=== PATIENT | female | born 1940 ===

== ENCOUNTER 2018-08-28 22:00 | Inpatient (IN) | payer MEDICARE ==
[~2018-08-28] VITALS: Ht 162.6 cm; Wt 72.2 kg
--- NOTE | 2018-08-28 23:05 | PDOC ---
Exam Note: Asif Note: Please also refer to the separate dictated note~for this date of service dictated separately.~Patient seen individually. Discussed the patient with Nursing staff reviewed the chart.~Reviewed interim history and current functioning. Reviewed vital signs,~Labs/ Radiology~and current medications noted below. Continue current treatment with the changes noted in the dictated addendum note Current Medications: I have reviewed the current psychotropics carefully including drug interactions. Risk benefit ratio favors no change other than as noted in my dictated progress note. GIRMA GRAF MD Aug 28, 2018 23:05
[2018-08-29] MEDS ORDERED: ASPI-630 PO (01:01)
[2018-08-29] MEDS ORDERED: ATOR10TA60 PO (01:01)
[2018-08-29] MEDS ORDERED: POLY17PO5 PO (01:01)
[2018-08-29] MEDS ORDERED: ACET325T9 PO (01:01)
[2018-08-29] MEDS ORDERED: TRAZ-85 PO (01:01)
[2018-08-29] MEDS ORDERED: MELO7.5T29 PO (01:01)
[2018-08-29] MEDS ORDERED: INSU100I13 SQ (01:01)
[2018-08-29] MEDS ORDERED: FURO20TA3 PO (01:01)
[2018-08-29] MEDS ORDERED: VENL150T PO (01:01)
[2018-08-29] MEDS ORDERED: INSU100I17 SQ (01:01)
[2018-08-29 01:29] VITALS: BP 147/82
[2018-08-29] MEDS ORDERED: MAGNESIUM HYDROXIDE 2,400 MG/30 ML ORAL.SUSP. PO PRN (01:45)
[2018-08-29] MEDS ORDERED: ACETAMINOPHEN 325 MG TABLET PO PRN (01:45)
[2018-08-29] MEDS ORDERED: METHYL SALICYLATE/MENTHOL TOPICAL OINTMENT 29GM TUBE. TP PRN (01:45)
[2018-08-29] MEDS ORDERED: MAG HYDROX/AL HYDROX/SIMETH 30 ML ORAL.SUSP PO PRN (01:45)
[2018-08-29] MEDS ORDERED: traZODone 50 MG TABLET. PO PRN (03:00)
[2018-08-29] MEDS: ACETAMINOPHEN 325 MG TABLET PO PRN (03:45)
--- NOTE | 2018-08-29 04:49 | EKG ---
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
[2018-08-29 06:12] VITALS: BP 140/74
[2018-08-29 06:25] LABS: BASO % 1 % (0-3); EOS # 0.1 x10^3/uL (0.0-0.7); EOS % 2 % (0-3); HEMATOCRIT 41.1 % (36.0-47.0); HEMOGLOBIN 13.6 g/dL (12.0-15.5); LYMPH # 1.4 x10^3/uL (1.0-4.8); LYMPH % 35 % (24-48); MEAN CORPUSCULAR HEMOGLOBIN 29 pg (25-35); MEAN CORPUSCULAR HGB CONC 33 g/dL (31-37); MEAN CORPUSCULAR VOLUME 89 fL (79-100); MONO # 0.3 x10^3/uL (0.0-1.1); MONO % 7 % (0-9); NEUT # 2.2 x10^3uL (1.8-7.7); NEUT % 56 % (31-73); PLATELET COUNT 154 x10^3/uL (140-400); RED BLOOD COUNT 4.63 x10^6/uL (3.50-5.40); RED CELL DISTRIBUTION WIDTH 14.3 % (11.5-14.5)
[2018-08-29 06:36] LABS: ALBUMIN 3.2 g/dL (3.4-5.0); ALBUMIN/GLOBULIN RATIO 0.9 (1.0-1.7); CALCIUM 8.9 mg/dL (8.5-10.1); CREATININE 1.2 mg/dL (0.6-1.0); GFR 43.3; POTASSIUM 4.1 mmol/L (3.5-5.1); TOTAL BILIRUBIN 0.8 mg/dL (0.2-1.0); TOTAL PROTEIN 6.7 g/dL (6.4-8.2)
[2018-08-29] MEDS: ASPIRIN 81 MG TAB.CHEW PO SCH (08:11)
[2018-08-29] MEDS: POLYETHYLENE GLYCOL 3350 17 GM PACKET. PO SCH (08:11)
[2018-08-29] MEDS: FUROSEMIDE 20 MG TABLET PO SCH (08:11)
[2018-08-29] MEDS: MELOXICAM 7.5 MG TABLET PO SCH (08:11)
[2018-08-29] MEDS: INSULIN LISPRO 300 UNITS/3 ML INSULN.PEN. SQ SCH ×3 (08:12→17:31)
[2018-08-29] MEDS: INSULIN GLARGINE 300 UNITS/3 ML INSULN.PEN. SQ SCH (08:14)
[2018-08-29] MEDS ORDERED: NON FORMULARY ITEM (Venlafaxine Hcl (Venlafaxine Hcl Er) 150 MG) PO SCH (09:00)
[2018-08-29] MEDS ORDERED: ATORVASTATIN CALCIUM 10 MG PO SCH (09:00)
[2018-08-29] MEDS ORDERED: NON FORMULARY ITEM (Polyethylene Glycol 3350 (Miralax) 17 GM) PO SCH (09:00)
[2018-08-29] MEDS ORDERED: NON FORMULARY ITEM (Meloxicam 7.5 MG) PO SCH (09:00)
[2018-08-29] MEDS ORDERED: VENLAFAXINE XR 37.5 MG CAP.ER.24H. PO SCH (09:00)
[2018-08-29] MEDS ORDERED: NON FORMULARY ITEM (Aspirin 81 MG) PO SCH (09:00)
[2018-08-29 12:45] LABS: THYROID STIM HORMONE (TSH) 2.243 uIU/mL (0.358-3.740)
[2018-08-29 16:10] VITALS: BP 169/82
[2018-08-29 19:12] LABS: THYROXINE 6.2 ug/dL (4.5-12.0)
--- NOTE | 2018-08-29 19:41 | HP ---
ADMIT DATE: 08/28/2018 PSYCHIATRIC HISTORY AND EVALUATION This note covers elements not covered in my initial note, 08/29/2018. IDENTIFYING DATA: The patient is a 77-year-old female referred to us from the Emergency Room at [facility] where she presented from her independent living at [facility] where she cares for her due to his progressive dementia. The patient has been getting increasingly depressed, hopeless, worthless, overwhelmed while taking care of her . She threatened suicide. Said she was praying to be and at one point had threatened to jump off the third story of the apartment complex to end her life. She was tearful, hopeless. She had failed outpatient psychiatric interventions, referred for inpatient psychiatric stabilization. CHIEF COMPLAINT: "I would not try to end my life, but it has been getting very frustrating. He is getting more confused. I cannot take care of him." HISTORY OF PRESENT ILLNESS: The patient relates worsening symptoms of depression, feeling hopeless, helpless, worthless, increasingly anxious and overwhelmed taking care of her . She has had some sleep and appetite changes. No clear psychotic symptoms or homicidal ideation. No clear symptoms of bipolar disorder. She has had some short term memory deficits. PAST PSYCHIATRIC HISTORY: As above. MEDICAL HISTORY: Positive for gait disorder, allergic rhinitis, abdominal aortic pulsation, asthma, bradycardia, pacemaker in place, celiac disease, lumbar compression fracture, diabetic foot ulcer, diverticulosis, dysuria, edema, gastroparesis, osteoarthritis, GERD, irritable bowel syndrome, low back pain, hyperlipidemia, obesity, obstructive sleep apnea, atrial fibrillation, sarcoidosis, chronic kidney disease, stage 3, thyroid nodule incontinence, vitamin D deficiency, cataracts. PAST SURGICAL HISTORY: Appendectomy, cholecystectomy and tonsillectomy. ALLERGIES: CIPRO, MEPERIDINE, AUGMENTIN, CODEINE, DEMEROL, ERYTHROMYCIN, MORPHINE, NARCOTIC ANALGESIC, SULFA DRUGS, TRAMADOL. CODE STATUS: DNR. FAMILY HISTORY: Noncontributory. SOCIAL HISTORY: No alcohol, drug abuse, physical, sexual or elder abuse history is noted. Patient is not known to be a perpetrator. She states she worked for an [employer] company mostly with [email or web address]. She has been twice. Reportedly, her first cheated on her and her children are from her first relationship. She has been currently for the past 34 years approximately. She brought up her family in [facility] and moved to the [facility] to be closer to her sons and her 's vascular surgeon. REACTION TO HOSPITALIZATION: The patient accepting of it. Assets: Patient has supportive family. Three of her sons, 2 are in town, one is out of state and she is cognitively reasonably intact. MENTAL STATUS EXAMINATION: The patient was seen individually evening of 08/29/2018. She is oriented to herself, situation, knew it was 08/29/2018. She is aware of who the president was, President Shirlene. Mood is depressed, anxious. Affect is mood congruent. She was able to do 2 steps on serial sevens, able to spell world forward no error backward, 2 errors. Again, no active suicidal or homicidal ideation. LABORATORY DATA: Reviewed. IMPRESSION: Major depressive disorder, recurrent with history of suicidal ideation; anxiety disorder, unspecified; impulse control disorder, unspecified; mild cognitive impairment. Rest as above. PLAN: Admit to Geropsychiatry Unit at [facility]. I will see the patient daily individually from a psychiatric standpoint. The patient is currently on Effexor XR 150 mg a day, trazodone 50 mg at bedtime. Given her chronic pain symptoms, we will go ahead and change the Effexor to Cymbalta 30 mg a day, increasing gradually, perhaps to 90 mg a day. May need augmentation with Abilify, but we will decide that in due course. Medical followup with Dr. Govea/Dr. Henderson and I will see her daily individually from a psychiatric standpoint. Estimated length of stay 10-12 days. DISPOSITION: Plans return back to independent living or perhaps assisted living if it can be arranged. MAN Patrice GRAF MD DR: ROLAN/angle JOB#: [id number] / [id number]
[2018-08-29 20:07] LABS: HEMOGLOBIN A1C 6.6 % (4.8-5.6)
[2018-08-29] MEDS: ATORVASTATIN CALCIUM 10 MG TABLET. PO SCH (20:07)
[2018-08-29] MEDS: traZODone 50 MG TABLET. PO SCH (20:07)
[2018-08-29] MEDS ORDERED: NON FORMULARY ITEM (Trazodone Hcl 25 MG) PO SCH (21:00)
[2018-08-30 05:48] VITALS: BP 141/83
[2018-08-30] MEDS: DULoxetine HCL 30 MG CAPSULE.DR PO SCH (08:24)
[2018-08-30] MEDS: MELOXICAM 7.5 MG TABLET PO SCH (08:25)
[2018-08-30] MEDS: FUROSEMIDE 20 MG TABLET PO SCH (08:25)
[2018-08-30] MEDS: POLYETHYLENE GLYCOL 3350 17 GM PACKET. PO SCH (08:25)
[2018-08-30] MEDS: ASPIRIN 81 MG TAB.CHEW PO SCH (08:27)
[2018-08-30] MEDS: INSULIN GLARGINE 300 UNITS/3 ML INSULN.PEN. SQ SCH (08:31)
[2018-08-30] MEDS: INSULIN LISPRO 300 UNITS/3 ML INSULN.PEN. SQ SCH ×3 (08:34→16:30)
[2018-08-30 16:34] VITALS: BP 133/77
[2018-08-30] MEDS: ATORVASTATIN CALCIUM 10 MG TABLET. PO SCH (21:26)
[2018-08-30] MEDS: traZODone 50 MG TABLET. PO SCH (21:27)
--- NOTE | 2018-08-30 22:39 | PDOC ---
Exam Note: Asif Note: Late entry for DOS 08/29/2018. Please also refer to the separate dictated note~ for this date of service dictated separately.~Patient seen individually. Discussed the patient with Nursing staff reviewed the chart.~Reviewed interim history and current functioning. Reviewed vital signs,~Labs/ Radiology~and current medications noted below. Continue current treatment with the changes noted in the dictated addendum note Assessment: Vital Signs: VS - Last 72 Hours, by Label Date Time Temp Pulse Resp B/P (MAP) Pulse Ox O2 Delivery O2 Flow Rate FiO2 08/30/18 16:34 98.2 81 18 133/77 (95) 99 08/30/18 05:48 98.0 81 20 141/83 (102) 96 08/29/18 16:10 97.8 83 20 169/82 (111) 97 Room Air 08/29/18 06:12 98.3 79 18 140/74 (96) 97 Room Air 08/29/18 01:29 97.9 81 18 147/82 (103) 98 Vital Signs Date Time Temp Pulse Resp B/P (MAP) Pulse Ox O2 Delivery O2 Flow Rate FiO2 08/30/18 16:34 98.2 81 18 133/77 (95) 99 08/29/18 16:10 Room Air I&O Intake and Output 08/30/18 07:00 Intake Total 1080 ml Balance 1080 ml Intake Oral 1080 ml Labs: Laboratory Tests Test 08/30/18 08:03 08/30/18 11:56 08/30/18 17:02 08/30/18 19:31 Glucose (Fingerstick) 139 mg/dL (70-99) H 113 mg/dL (70-99) H 123 mg/dL (70-99) H 175 mg/dL (70-99) H Current Medications: Meds: Current Medications Acetaminophen (Tylenol) 650 mg PRN Q6HRS PRN PO PAIN / TEMP Last administered on 08/29/18at 03:45; Start 08/29/18 at 01:45 Multi-Ingredient Ointment (Analgesic [place]) 1 calli PRN QID PRN TP MUSCLE PAIN; Start 08/29/18 at 01:45 Al Hydroxide/Mg Hydroxide (Mylanta Plus Xs) 15 ml PRN AFTMEALHC PRN PO DYSPEPSIA; Start 08/29/18 at 01:45 Magnesium Hydroxide (Milk Of Magnesia) 2,400 mg PRN QHS PRN PO CONSTIPATION; Start 08/29/18 at 01:45 Acetaminophen (Tylenol) 650 mg PRN Q4HRS PRN PO PAIN / TEMP; Start 08/29/18 at 01:45; Status Cancel Furosemide (Lasix) 20 mg DAILY PO Last administered on 08/30/18at 08:25; Start 08/29/18 at 09:00 Insulin Glargine (Lantus) 35 units DAILY SQ Last administered on 08/29/18at 08: 14; Start 08/29/18 at 09:00 Non-Formulary Medication (Aspirin ) 81 mg DAILY PO ; Start 08/29/18 at 09:00; Status UNV Non-Formulary Medication (Atorvastatin Calcium ) 10 mg DAILY PO ; Start at 09:00; Status UNV Insulin Human Lispro (HumaLOG) 8 units TIDAC SQ Last administered on 08/30/18at 08:34; Start 08/29/18 at 07:30 Non-Formulary Medication (Meloxicam ) 7.5 mg DAILY PO ; Start 08/29/18 at 09:00 ; Status UNV Non-Formulary Medication (Polyethylene Glycol 3350 (Miralax)) 17 gm DAILY PO ; Start 08/29/18 at 09:00; Status UNV Non-Formulary Medication (Trazodone Hcl ) 25 mg QHS PO ; Start 08/29/18 at 21:00 ; Status UNV Non-Formulary Medication (Venlafaxine Hcl (Venlafaxine Hcl Er)) 150 mg DAILY PO ; Start 08/29/18 at 09:00; Status UNV Meloxicam (Mobic) 7.5 mg DAILY PO Last administered on 08/30/18at 08:25; Start 08/29/18 at 09:00 Trazodone HCl (Desyrel) 25 mg PRN QHS PRN PO INSOMNIA; Start 08/29/18 at 03:00 Venlafaxine HCl (Effexor Xr) 150 mg DAILY PO Last administered on 08/29/18at 08: 11; Start 08/29/18 at 09:00; Stop 08/29/18 at 18:50; Status DC Atorvastatin Calcium (Lipitor) 10 mg HS PO Last administered on 11/7/18at 21:26 ; Start 08/29/18 at 21:00 Aspirin (Children'S Aspirin) 81 mg DAILYWBKFT PO Last administered on at 08:27; Start 08/29/18 at 08:00 Polyethylene Glycol (miraLAX) 17 gm DAILY PO Last administered on 08/30/18 08: 25; Start 08/29/18 at 09:00 Trazodone HCl (Desyrel) 50 mg QHS PO Last administered on 08/30/18 21:27; Start 08/29/18 at 21:00 Duloxetine HCl (Cymbalta) 30 mg DAILY PO Last administered on 08/30/18 08:24; Start 08/30/18 at 09:00; Stop 09/01/18 at 05:00 Duloxetine HCl (Cymbalta) 60 mg DAILY PO ; Start 09/01/18 at 09:00 Active Scripts Active Reported Furosemide 20 Mg Tablet 20 Mg PO DAILY Tylenol (Acetaminophen) 325 Mg Tablet 650 Mg PO PRN Q4HRS Miralax (Polyethylene Glycol 3350) 17 Gm Powd.pack 17 Gm PO DAILY Aspirin 81 Mg Tab.chew 81 Mg PO DAILY Atorvastatin Calcium 10 Mg Tablet 10 Mg PO DAILY Novolog Flexpen (Insulin Aspart) 100 Unit/1 Ml Insuln.pen 8 Units SQ TIDAC Venlafaxine Hcl Er (Venlafaxine Hcl) 150 Mg Tab.er.24 150 Mg PO DAILY Trazodone Hcl 50 Mg Tablet 25 Mg PO QHS Meloxicam 7.5 Mg Tablet 7.5 Mg PO DAILY Lantus Solostar (Insulin Glargine,Hum.rec.anlog) 100 Unit/1 Ml Insuln.pen 35 Unit SQ DAILY I have reviewed the current psychotropics carefully including drug interactions. Risk benefit ratio favors no change other than as noted in my dictated progress note. Diagnosis: Problems: (1) Anxiety disorder (2) Major depressive disorder, recurrent episode GIRMA GRAF MD Aug 30, 2018 22:39
--- NOTE | 2018-08-30 23:12 | PDOC ---
Exam Note: Asif Note: Please also refer to the separate dictated note~for this date of service dictated separately.~Patient seen individually. Discussed the patient with Nursing staff reviewed the chart.~Reviewed interim history and current functioning. Reviewed vital signs,~Labs/ Radiology~and current medications noted below. Continue current treatment with the changes noted in the dictated addendum note Assessment: Vital Signs: Vital Signs Date Time Temp Pulse Resp B/P (MAP) Pulse Ox O2 Delivery O2 Flow Rate FiO2 08/30/18 16:34 98.2 81 18 133/77 (95) 99 08/29/18 16:10 Room Air I&O Intake and Output 08/30/18 07:00 Intake Total 1080 ml Balance 1080 ml Intake Oral 1080 ml Labs: Laboratory Tests Test 08/30/18 08:03 08/30/18 11:56 08/30/18 17:02 08/30/18 19:31 Glucose (Fingerstick) 139 mg/dL (70-99) H 113 mg/dL (70-99) H 123 mg/dL (70-99) H 175 mg/dL (70-99) H Current Medications: Meds: Current Medications Acetaminophen (Tylenol) 650 mg PRN Q6HRS PRN PO PAIN / TEMP Last administered on 08/29/18at 03:45; Start 08/29/18 at 01:45 Multi-Ingredient Ointment (Analgesic [place]) 1 calli PRN QID PRN TP MUSCLE PAIN; Start 08/29/18 at 01:45 Al Hydroxide/Mg Hydroxide (Mylanta Plus Xs) 15 ml PRN AFTMEALHC PRN PO DYSPEPSIA; Start 08/29/18 at 01:45 Magnesium Hydroxide (Milk Of Magnesia) 2,400 mg PRN QHS PRN PO CONSTIPATION; Start 08/29/18 at 01:45 Acetaminophen (Tylenol) 650 mg PRN Q4HRS PRN PO PAIN / TEMP; Start 08/29/18 at 01:45; Status Cancel Furosemide (Lasix) 20 mg DAILY PO Last administered on 08/30/18at 08:25; Start 08/29/18 at 09:00 Insulin Glargine (Lantus) 35 units DAILY SQ Last administered on 08/29/18at 08: 14; Start 08/29/18 at 09:00 Non-Formulary Medication (Aspirin ) 81 mg DAILY PO ; Start 08/29/18 at 09:00; Status UNV Non-Formulary Medication (Atorvastatin Calcium ) 10 mg DAILY PO ; Start at 09:00; Status UNV Insulin Human Lispro (HumaLOG) 8 units TIDAC SQ Last administered on 08/30/18at 08:34; Start 08/29/18 at 07:30 Non-Formulary Medication (Meloxicam ) 7.5 mg DAILY PO ; Start 08/29/18 at 09:00 ; Status UNV Non-Formulary Medication (Polyethylene Glycol 3350 (Miralax)) 17 gm DAILY PO ; Start 08/29/18 at 09:00; Status UNV Non-Formulary Medication (Trazodone Hcl ) 25 mg QHS PO ; Start 08/29/18 at 21:00 ; Status UNV Non-Formulary Medication (Venlafaxine Hcl (Venlafaxine Hcl Er)) 150 mg DAILY PO ; Start 08/29/18 at 09:00; Status UNV Meloxicam (Mobic) 7.5 mg DAILY PO Last administered on 08/30/18at 08:25; Start 08/29/18 at 09:00 Trazodone HCl (Desyrel) 25 mg PRN QHS PRN PO INSOMNIA; Start 08/29/18 at 03:00 Venlafaxine HCl (Effexor Xr) 150 mg DAILY PO Last administered on 08/29/18at 08: 11; Start 08/29/18 at 09:00; Stop 08/29/18 at 18:50; Status DC Atorvastatin Calcium (Lipitor) 10 mg HS PO Last administered on 08/30/18at 21:26 ; Start 08/29/18 at 21:00 Aspirin (Children'S Aspirin) 81 mg DAILYWBKFT PO Last administered on at 08:27; Start 08/29/18 at 08:00 Polyethylene Glycol (miraLAX) 17 gm DAILY PO Last administered on 08/30/18at 08: 25; Start 08/29/18 at 09:00 Trazodone HCl (Desyrel) 50 mg QHS PO Last administered on 08/30/18at 21:27; Start 08/29/18 at 21:00 Duloxetine HCl (Cymbalta) 30 mg DAILY PO Last administered on 11/7/18at 08:24; Start 08/30/18 at 09:00; Stop 09/01/18 at 05:00 Duloxetine HCl (Cymbalta) 60 mg DAILY PO ; Start 09/01/18 at 09:00 Active Scripts Active Reported Furosemide 20 Mg Tablet 20 Mg PO DAILY Tylenol (Acetaminophen) 325 Mg Tablet 650 Mg PO PRN Q4HRS Miralax (Polyethylene Glycol 3350) 17 Gm Powd.pack 17 Gm PO DAILY Aspirin 81 Mg Tab.chew 81 Mg PO DAILY Atorvastatin Calcium 10 Mg Tablet 10 Mg PO DAILY Novolog Flexpen (Insulin Aspart) 100 Unit/1 Ml Insuln.pen 8 Units SQ TIDAC Venlafaxine Hcl Er (Venlafaxine Hcl) 150 Mg Tab.er.24 150 Mg PO DAILY Trazodone Hcl 50 Mg Tablet 25 Mg PO QHS Meloxicam 7.5 Mg Tablet 7.5 Mg PO DAILY Lantus Solostar (Insulin Glargine,Hum.rec.anlog) 100 Unit/1 Ml Insuln.pen 35 Unit SQ DAILY I have reviewed the current psychotropics carefully including drug interactions. Risk benefit ratio favors no change other than as noted in my dictated progress note. Diagnosis: Problems: (1) Anxiety disorder (2) Major depressive disorder, recurrent episode GIRMA GRAF MD Aug 30, 2018 23:12
[2018-08-31 05:52] VITALS: BP 138/76
[2018-08-31] MEDS: INSULIN LISPRO 300 UNITS/3 ML INSULN.PEN. SQ SCH ×3 (08:10→17:17)
[2018-08-31] MEDS: INSULIN GLARGINE 300 UNITS/3 ML INSULN.PEN. SQ SCH ×2 (08:11→08:13)
[2018-08-31] MEDS: ASPIRIN 81 MG TAB.CHEW PO SCH (08:12)
[2018-08-31] MEDS: FUROSEMIDE 20 MG TABLET PO SCH (08:13)
[2018-08-31] MEDS: POLYETHYLENE GLYCOL 3350 17 GM PACKET. PO SCH (08:13)
[2018-08-31] MEDS: MELOXICAM 7.5 MG TABLET PO SCH (08:13)
[2018-08-31] MEDS: DULoxetine HCL 30 MG CAPSULE.DR PO SCH (08:13)
[2018-08-31 15:56] VITALS: BP 127/76
[2018-08-31] MEDS: traZODone 50 MG TABLET. PO SCH (20:55)
[2018-08-31] MEDS: ATORVASTATIN CALCIUM 10 MG TABLET. PO SCH (20:55)
[2018-09-01 06:14] VITALS: BP 155/79
[2018-09-01] MEDS: ASPIRIN 81 MG TAB.CHEW PO SCH (08:11)
[2018-09-01] MEDS: DULoxetine HCL 60 MG CAPSULE.DR PO SCH (08:12)
[2018-09-01] MEDS: POLYETHYLENE GLYCOL 3350 17 GM PACKET. PO SCH (08:13)
[2018-09-01] MEDS: FUROSEMIDE 20 MG TABLET PO SCH (08:13)
[2018-09-01] MEDS: MELOXICAM 7.5 MG TABLET PO SCH (08:13)
[2018-09-01] MEDS: INSULIN LISPRO 300 UNITS/3 ML INSULN.PEN. SQ SCH ×3 (08:26→17:19)
[2018-09-01] MEDS: INSULIN GLARGINE 300 UNITS/3 ML INSULN.PEN. SQ SCH (08:26)
[2018-09-01 15:58] VITALS: BP 101/60
--- NOTE | 2018-09-01 19:03 | PN ---
DATE: 08/30/2018 PSYCHIATRIC PROGRESS NOTE This late entry 08/30/2018 covers elements not covered in my initial note. SUBJECTIVE: I met with the patient in the evening. The patient slept 7 hours previous night. She remains somewhat depressed, withdrawn, but no overt behaviors noted and not voicing suicidal ideation. I met with her at great length in her room. She talked about her relationship with her current of 34 years and said that he wanted a younger woman to help take care of him and she feels this was a one-sided relationship. She now seems to resent that. We addressed at great length. REVIEW OF SYSTEMS: No CV, , pulmonary, eye, ENT system symptoms on review. Gait unsteady with walker. MENTAL STATUS EXAM: Reasonably oriented. Speech coherent, abstraction fair, computation impaired, language function intact, attention span short. Mood and affect still somewhat dysphoric. No active suicidal or homicidal ideation. LABORATORY DATA: Reviewed. IMPRESSION: Major depressive disorder, recurrent; anxiety disorder, unspecified; mild cognitive impairment. PLAN: Continue Cymbalta 30 mg a day. We will gradually increase to 60 mg a day. Rest unchanged for now. MAN Patrice GRAF MD DR: ROLAN/angle JOB#: [id number] / [id number]
[2018-09-01] MEDS: traZODone 50 MG TABLET. PO SCH (19:28)
[2018-09-01] MEDS: ATORVASTATIN CALCIUM 10 MG TABLET. PO SCH (19:28)
--- NOTE | 2018-09-01 19:41 | PDOC ---
Exam Note: Asif Note: Late entry for date of service August 31, 2018. Please also refer to the separate dictated note~for this date of service dictated separately.~Patient seen individually. Discussed the patient with Nursing staff reviewed the chart.~ Reviewed interim history and current functioning. Reviewed vital signs,~Labs/ Radiology~and current medications noted below. Continue current treatment with the changes noted in the dictated addendum note Assessment: Vital Signs: VS - Last 72 Hours, by Label Date Time Temp Pulse Resp B/P (MAP) Pulse Ox O2 Delivery O2 Flow Rate FiO2 09/01/18 15:58 98.5 79 18 101/60 (74) 95 Room Air 09/01/18 06:14 97.9 80 18 155/79 (104) 100 Room Air 08/31/18 15:56 97.8 76 17 127/76 (93) 100 Room Air 08/31/18 05:52 97.0 80 21 138/76 (96) 94 08/30/18 16:34 98.2 81 18 133/77 (95) 99 08/30/18 05:48 98.0 81 20 141/83 (102) 96 Vital Signs Date Time Temp Pulse Resp B/P (MAP) Pulse Ox O2 Delivery O2 Flow Rate FiO2 09/01/18 15:58 98.5 79 18 101/60 (74) 95 Room Air I&O Intake and Output 09/01/18 07:00 Intake Total 840 ml Balance 840 ml Intake Oral 840 ml Labs: Laboratory Tests Test 09/01/18 07:15 09/01/18 11:48 09/01/18 16:21 Glucose (Fingerstick) 148 mg/dL (70-99) H 161 mg/dL (70-99) H 233 mg/dL (70-99) H Current Medications: Meds: Current Medications Acetaminophen (Tylenol) 650 mg PRN Q6HRS PRN PO PAIN / TEMP Last administered on 08/29/18at 03:45; Start 08/29/18 at 01:45 Multi-Ingredient Ointment (Analgesic [place]) 1 calli PRN QID PRN TP MUSCLE PAIN; Start 08/29/18 at 01:45 Al Hydroxide/Mg Hydroxide (Mylanta Plus Xs) 15 ml PRN AFTMEALHC PRN PO DYSPEPSIA; Start 08/29/18 at 01:45 Magnesium Hydroxide (Milk Of Magnesia) 2,400 mg PRN QHS PRN PO CONSTIPATION; Start 08/29/18 at 01:45 Acetaminophen (Tylenol) 650 mg PRN Q4HRS PRN PO PAIN / TEMP; Start 08/29/18 at 01:45; Status Cancel Furosemide (Lasix) 20 mg DAILY PO Last administered on 09/01/18at 08:13; Start 08/29/18 at 09:00 Insulin Glargine (Lantus) 35 units DAILY SQ Last administered on 08/31/18at 08: 13; Start 08/29/18 at 09:00 Non-Formulary Medication (Aspirin ) 81 mg DAILY PO ; Start 08/29/18 at 09:00; Status UNV Non-Formulary Medication (Atorvastatin Calcium ) 10 mg DAILY PO ; Start at 09:00; Status UNV Insulin Human Lispro (HumaLOG) 8 units TIDAC SQ Last administered on 09/01/18at 17:19; Start 08/29/18 at 07:30 Non-Formulary Medication (Meloxicam ) 7.5 mg DAILY PO ; Start 08/29/18 at 09:00 ; Status UNV Non-Formulary Medication (Polyethylene Glycol 3350 (Miralax)) 17 gm DAILY PO ; Start 08/29/18 at 09:00; Status UNV Non-Formulary Medication (Trazodone Hcl ) 25 mg QHS PO ; Start 08/29/18 at 21:00 ; Status UNV Non-Formulary Medication (Venlafaxine Hcl (Venlafaxine Hcl Er)) 150 mg DAILY PO ; Start 08/29/18 at 09:00; Status UNV Meloxicam (Mobic) 7.5 mg DAILY PO Last administered on 09/01/18at 08:13; Start 08/29/18 at 09:00 Trazodone HCl (Desyrel) 25 mg PRN QHS PRN PO INSOMNIA; Start 08/29/18 at 03:00 Venlafaxine HCl (Effexor Xr) 150 mg DAILY PO Last administered on 08/29/18at 08: 11; Start 08/29/18 at 09:00; Stop 08/29/18 at 18:50; Status DC Atorvastatin Calcium (Lipitor) 10 mg HS PO Last administered on 11/9/18at 19:28 ; Start 08/29/18 at 21:00 Aspirin (Children'S Aspirin) 81 mg DAILYWBKFT PO Last administered on 08:11; Start 08/29/18 at 08:00 Polyethylene Glycol (miraLAX) 17 gm DAILY PO Last administered on 09/01/18 08: 13; Start 08/29/18 at 09:00 Trazodone HCl (Desyrel) 50 mg QHS PO Last administered on 09/01/18 19:28; Start 08/29/18 at 21:00 Duloxetine HCl (Cymbalta) 30 mg DAILY PO Last administered on 08/31/18 08:13; Start 08/30/18 at 09:00; Stop 09/01/18 at 05:00; Status DC Duloxetine HCl (Cymbalta) 60 mg DAILY PO Last administered on 09/01/18 08:12; Start 09/01/18 at 09:00 Active Scripts Active Reported Furosemide 20 Mg Tablet 20 Mg PO DAILY Tylenol (Acetaminophen) 325 Mg Tablet 650 Mg PO PRN Q4HRS Miralax (Polyethylene Glycol 3350) 17 Gm Powd.pack 17 Gm PO DAILY Aspirin 81 Mg Tab.chew 81 Mg PO DAILY Atorvastatin Calcium 10 Mg Tablet 10 Mg PO DAILY Novolog Flexpen (Insulin Aspart) 100 Unit/1 Ml Insuln.pen 8 Units SQ TIDAC Venlafaxine Hcl Er (Venlafaxine Hcl) 150 Mg Tab.er.24 150 Mg PO DAILY Trazodone Hcl 50 Mg Tablet 25 Mg PO QHS Meloxicam 7.5 Mg Tablet 7.5 Mg PO DAILY Lantus Solostar (Insulin Glargine,Hum.rec.anlog) 100 Unit/1 Ml Insuln.pen 35 Unit SQ DAILY I have reviewed the current psychotropics carefully including drug interactions. Risk benefit ratio favors no change other than as noted in my dictated progress note. Diagnosis: Problems: (1) Anxiety disorder (2) Major depressive disorder, recurrent episode GIRMA GRAF MD Sep 01, 2018 19:40
--- NOTE | 2018-09-01 22:50 | PDOC ---
Exam Note: Asif Note: Please also refer to the separate dictated note~for this date of service dictated separately.~Patient seen individually. Discussed the patient with Nursing staff reviewed the chart.~Reviewed interim history and current functioning. Reviewed vital signs,~Labs/ Radiology~and current medications noted below. Continue current treatment with the changes noted in the dictated addendum note Assessment: Vital Signs: Vital Signs Date Time Temp Pulse Resp B/P (MAP) Pulse Ox O2 Delivery O2 Flow Rate FiO2 09/01/18 15:58 98.5 79 18 101/60 (74) 95 Room Air I&O Intake and Output 09/01/18 07:00 Intake Total 840 ml Balance 840 ml Intake Oral 840 ml Labs: Laboratory Tests Test 09/01/18 07:15 09/01/18 11:48 09/01/18 16:21 09/01/18 19:29 Glucose (Fingerstick) 148 mg/dL (70-99) H 161 mg/dL (70-99) H 233 mg/dL (70-99) H 246 mg/dL (70-99) H Current Medications: Meds: Current Medications Acetaminophen (Tylenol) 650 mg PRN Q6HRS PRN PO PAIN / TEMP Last administered on 08/29/18at 03:45; Start 08/29/18 at 01:45 Multi-Ingredient Ointment (Analgesic [place]) 1 calli PRN QID PRN TP MUSCLE PAIN; Start 08/29/18 at 01:45 Al Hydroxide/Mg Hydroxide (Mylanta Plus Xs) 15 ml PRN AFTMEALHC PRN PO DYSPEPSIA; Start 08/29/18 at 01:45 Magnesium Hydroxide (Milk Of Magnesia) 2,400 mg PRN QHS PRN PO CONSTIPATION; Start 08/29/18 at 01:45 Acetaminophen (Tylenol) 650 mg PRN Q4HRS PRN PO PAIN / TEMP; Start 08/29/18 at 01:45; Status Cancel Furosemide (Lasix) 20 mg DAILY PO Last administered on 09/01/18at 08:13; Start 08/29/18 at 09:00 Insulin Glargine (Lantus) 35 units DAILY SQ Last administered on 08/31/18at 08: 13; Start 08/29/18 at 09:00 Non-Formulary Medication (Aspirin ) 81 mg DAILY PO ; Start 08/29/18 at 09:00; Status UNV Non-Formulary Medication (Atorvastatin Calcium ) 10 mg DAILY PO ; Start at 09:00; Status UNV Insulin Human Lispro (HumaLOG) 8 units TIDAC SQ Last administered on 09/01/18 17:19; Start 08/29/18 at 07:30 Non-Formulary Medication (Meloxicam ) 7.5 mg DAILY PO ; Start 08/29/18 at 09:00 ; Status UNV Non-Formulary Medication (Polyethylene Glycol 3350 (Miralax)) 17 gm DAILY PO ; Start 08/29/18 at 09:00; Status UNV Non-Formulary Medication (Trazodone Hcl ) 25 mg QHS PO ; Start 08/29/18 at 21:00 ; Status UNV Non-Formulary Medication (Venlafaxine Hcl (Venlafaxine Hcl Er)) 150 mg DAILY PO ; Start 08/29/18 at 09:00; Status UNV Meloxicam (Mobic) 7.5 mg DAILY PO Last administered on 09/01/18at 08:13; Start 08/29/18 at 09:00 Trazodone HCl (Desyrel) 25 mg PRN QHS PRN PO INSOMNIA; Start 08/29/18 at 03:00 Venlafaxine HCl (Effexor Xr) 150 mg DAILY PO Last administered on 08/29/18at 08: 11; Start 08/29/18 at 09:00; Stop 08/29/18 at 18:50; Status DC Atorvastatin Calcium (Lipitor) 10 mg HS PO Last administered on 09/01/18 19:28 ; Start 08/29/18 at 21:00 Aspirin (Children'S Aspirin) 81 mg DAILYWBKFT PO Last administered on at 08:11; Start 08/29/18 at 08:00 Polyethylene Glycol (miraLAX) 17 gm DAILY PO Last administered on 09/01/18 08: 13; Start 08/29/18 at 09:00 Trazodone HCl (Desyrel) 50 mg QHS PO Last administered on 09/01/18 19:28; Start 08/29/18 at 21:00 Duloxetine HCl (Cymbalta) 30 mg DAILY PO Last administered on 11/8/18at 08:13; Start 08/30/18 at 09:00; Stop 09/01/18 at 05:00; Status DC Duloxetine HCl (Cymbalta) 60 mg DAILY PO Last administered on 09/01/18at 08:12; Start 09/01/18 at 09:00 Active Scripts Active Reported Furosemide 20 Mg Tablet 20 Mg PO DAILY Tylenol (Acetaminophen) 325 Mg Tablet 650 Mg PO PRN Q4HRS Miralax (Polyethylene Glycol 3350) 17 Gm Powd.pack 17 Gm PO DAILY Aspirin 81 Mg Tab.chew 81 Mg PO DAILY Atorvastatin Calcium 10 Mg Tablet 10 Mg PO DAILY Novolog Flexpen (Insulin Aspart) 100 Unit/1 Ml Insuln.pen 8 Units SQ TIDAC Venlafaxine Hcl Er (Venlafaxine Hcl) 150 Mg Tab.er.24 150 Mg PO DAILY Trazodone Hcl 50 Mg Tablet 25 Mg PO QHS Meloxicam 7.5 Mg Tablet 7.5 Mg PO DAILY Lantus Solostar (Insulin Glargine,Hum.rec.anlog) 100 Unit/1 Ml Insuln.pen 35 Unit SQ DAILY I have reviewed the current psychotropics carefully including drug interactions. Risk benefit ratio favors no change other than as noted in my dictated progress note. Diagnosis: Problems: (1) Anxiety disorder (2) Major depressive disorder, recurrent episode GIRMA GRAF MD Sep 01, 2018 22:50
[2018-09-02 05:47] VITALS: BP 127/79
[2018-09-02] MEDS: INSULIN LISPRO 300 UNITS/3 ML INSULN.PEN. SQ SCH ×3 (08:10→17:19)
[2018-09-02] MEDS: ASPIRIN 81 MG TAB.CHEW PO SCH (09:06)
[2018-09-02] MEDS: DULoxetine HCL 60 MG CAPSULE.DR PO SCH (09:06)
[2018-09-02] MEDS: FUROSEMIDE 20 MG TABLET PO SCH (09:07)
[2018-09-02] MEDS: INSULIN GLARGINE 300 UNITS/3 ML INSULN.PEN. SQ SCH (09:07)
[2018-09-02] MEDS: MELOXICAM 7.5 MG TABLET PO SCH (09:07)
[2018-09-02] MEDS: POLYETHYLENE GLYCOL 3350 17 GM PACKET. PO SCH (09:07)
--- NOTE | 2018-09-02 11:58 | PN ---
DATE: 08/31/2018 PSYCHIATRIC PROGRESS NOTE This is a late entry 08/31/2018 covers elements not covered in my initial note. SUBJECTIVE: I met with the patient at some length in the evening and staffed at a treatment team meeting with the entire team in the morning. The patient's son, Remberto, attended treatment team meeting. We reviewed the patient's history at length. She slept 6-3/4 hours. Appetite fair. She has been calmer, still depressed. Son mentioned that the patient's current , even though he is in his early 90s is fairly functional cognitively and had been helpful with the patient. The patient seems to resent that she is much younger than him and perhaps he has been using her for that, but the son disputed this. REVIEW OF SYSTEMS: Ambulation impaired with walker. No CV, , pulmonary, eye, ENT system symptoms on review. MENTAL STATUS EXAM: Oriented to herself and situation. Speech is coherent, has some latency. Abstraction fair, computation impaired, language function intact. Attention span short. She is able to do one step, serial 7, still depressed, anxious. No suicidal or homicidal ideation. LABORATORY DATA: Reviewed. IMPRESSION: Major depressive disorder, recurrent; anxiety disorder, unspecified. PLAN: Change Effexor XR 150 mg a day to Cymbalta 30 mg a day, may need to increase this gradually. Maintain trazodone for now. GIRMA GRAF MD DR: ROLAN/angle JOB#: [id number] / [id number]
[2018-09-02 15:45] VITALS: BP 144/80
[2018-09-02] MEDS ORDERED: BENZOCAINE/MENTHOL LOZNGE 18'S BOX. PO PRN (17:45)
[2018-09-02] MEDS: ATORVASTATIN CALCIUM 10 MG TABLET. PO SCH (20:41)
[2018-09-02] MEDS: traZODone 50 MG TABLET. PO SCH (20:41)
--- NOTE | 2018-09-02 22:50 | PDOC ---
Exam Note: Asif Note: Please also refer to the separate dictated note~for this date of service dictated separately.~Patient seen individually. Discussed the patient with Nursing staff reviewed the chart.~Reviewed interim history and current functioning. Reviewed vital signs,~Labs/ Radiology~and current medications noted below. Continue current treatment with the changes noted in the dictated addendum note Assessment: Vital Signs: Vital Signs Date Time Temp Pulse Resp B/P (MAP) Pulse Ox O2 Delivery O2 Flow Rate FiO2 09/02/18 15:45 98.2 80 20 144/80 (101) 99 Room Air I&O Intake and Output 09/02/18 07:00 Intake Total 940 ml Balance 940 ml Intake Oral 940 ml Labs: Laboratory Tests Test 09/02/18 07:14 09/02/18 11:37 09/02/18 17:02 09/02/18 20:00 Glucose (Fingerstick) 191 mg/dL (70-99) H 228 mg/dL (70-99) H 132 mg/dL (70-99) H 150 mg/dL (70-99) H Current Medications: Meds: Current Medications Acetaminophen (Tylenol) 650 mg PRN Q6HRS PRN PO PAIN / TEMP Last administered on 08/29/18at 03:45; Start 08/29/18 at 01:45 Multi-Ingredient Ointment (Analgesic [place]) 1 calli PRN QID PRN TP MUSCLE PAIN; Start 08/29/18 at 01:45 Al Hydroxide/Mg Hydroxide (Mylanta Plus Xs) 15 ml PRN AFTMEALHC PRN PO DYSPEPSIA; Start 08/29/18 at 01:45 Magnesium Hydroxide (Milk Of Magnesia) 2,400 mg PRN QHS PRN PO CONSTIPATION; Start 08/29/18 at 01:45 Acetaminophen (Tylenol) 650 mg PRN Q4HRS PRN PO PAIN / TEMP; Start 08/29/18 at 01:45; Status Cancel Furosemide (Lasix) 20 mg DAILY PO Last administered on 09/02/18at 09:07; Start 08/29/18 at 09:00 Insulin Glargine (Lantus) 35 units DAILY SQ Last administered on 08/31/18at 08: 13; Start 08/29/18 at 09:00 Non-Formulary Medication (Aspirin ) 81 mg DAILY PO ; Start 08/29/18 at 09:00; Status UNV Non-Formulary Medication (Atorvastatin Calcium ) 10 mg DAILY PO ; Start at 09:00; Status UNV Insulin Human Lispro (HumaLOG) 8 units TIDAC SQ Last administered on at 17:19; Start 08/29/18 at 07:30 Non-Formulary Medication (Meloxicam ) 7.5 mg DAILY PO ; Start 08/29/18 at 09:00 ; Status UNV Non-Formulary Medication (Polyethylene Glycol 3350 (Miralax)) 17 gm DAILY PO ; Start 08/29/18 at 09:00; Status UNV Non-Formulary Medication (Trazodone Hcl ) 25 mg QHS PO ; Start 08/29/18 at 21:00 ; Status UNV Non-Formulary Medication (Venlafaxine Hcl (Venlafaxine Hcl Er)) 150 mg DAILY PO ; Start 08/29/18 at 09:00; Status UNV Meloxicam (Mobic) 7.5 mg DAILY PO Last administered on 09/02/18at 09:07; Start 08/29/18 at 09:00 Trazodone HCl (Desyrel) 25 mg PRN QHS PRN PO INSOMNIA; Start 08/29/18 at 03:00 Venlafaxine HCl (Effexor Xr) 150 mg DAILY PO Last administered on 08/29/18at 08: 11; Start 08/29/18 at 09:00; Stop 08/29/18 at 18:50; Status DC Atorvastatin Calcium (Lipitor) 10 mg HS PO Last administered on 09/02/18at 20: 41; Start 08/29/18 at 21:00 Aspirin (Children'S Aspirin) 81 mg DAILYWBKFT PO Last administered on at 09:06; Start 08/29/18 at 08:00 Polyethylene Glycol (miraLAX) 17 gm DAILY PO Last administered on 09/01/18at 08: 13; Start 08/29/18 at 09:00 Trazodone HCl (Desyrel) 50 mg QHS PO Last administered on 09/02/18at 20:41; Start 08/29/18 at 21:00 Duloxetine HCl (Cymbalta) 30 mg DAILY PO Last administered on 08/31/18at 08:13; Start 08/30/18 at 09:00; Stop 09/01/18 at 05:00; Status DC Duloxetine HCl (Cymbalta) 60 mg DAILY PO Last administered on 09/02/18at 09:06 ; Start 09/01/18 at 09:00 Throat Lozenges (Cepacol Sore Throat Lozenge) 1 christian PRN Q2HR PRN PO SORE THROAT ; Start 09/02/18 at 17:45 Aripiprazole (Abilify) 2 mg DAILY PO ; Start 09/03/18 at 09:00 Active Scripts Active Reported Furosemide 20 Mg Tablet 20 Mg PO DAILY Tylenol (Acetaminophen) 325 Mg Tablet 650 Mg PO PRN Q4HRS Miralax (Polyethylene Glycol 3350) 17 Gm Powd.pack 17 Gm PO DAILY Aspirin 81 Mg Tab.chew 81 Mg PO DAILY Atorvastatin Calcium 10 Mg Tablet 10 Mg PO DAILY Novolog Flexpen (Insulin Aspart) 100 Unit/1 Ml Insuln.pen 8 Units SQ TIDAC Venlafaxine Hcl Er (Venlafaxine Hcl) 150 Mg Tab.er.24 150 Mg PO DAILY Trazodone Hcl 50 Mg Tablet 25 Mg PO QHS Meloxicam 7.5 Mg Tablet 7.5 Mg PO DAILY Lantus Solostar (Insulin Glargine,Hum.rec.anlog) 100 Unit/1 Ml Insuln.pen 35 Unit SQ DAILY I have reviewed the current psychotropics carefully including drug interactions. Risk benefit ratio favors no change other than as noted in my dictated progress note. Diagnosis: Problems: (1) Anxiety disorder (2) Major depressive disorder, recurrent episode GIRMA GRAF MD Sep 02, 2018 22:50
[2018-09-03 07:00] VITALS: BP 121/78
[2018-09-03] MEDS: INSULIN LISPRO 300 UNITS/3 ML INSULN.PEN. SQ SCH ×3 (08:00→17:36)
[2018-09-03] MEDS: INSULIN GLARGINE 300 UNITS/3 ML INSULN.PEN. SQ SCH (08:01)
[2018-09-03] MEDS: ASPIRIN 81 MG TAB.CHEW PO SCH (08:37)
[2018-09-03] MEDS: FUROSEMIDE 20 MG TABLET PO SCH (08:38)
[2018-09-03] MEDS: DULoxetine HCL 60 MG CAPSULE.DR PO SCH (08:38)
[2018-09-03] MEDS: POLYETHYLENE GLYCOL 3350 17 GM PACKET. PO SCH (08:38)
[2018-09-03] MEDS: MELOXICAM 7.5 MG TABLET PO SCH (08:38)
[2018-09-03] MEDS: ARIPiprazole 2 MG TABLET PO SCH (08:40)
--- NOTE | 2018-09-03 11:40 | RAD ---
Chest PA and lateral: Reason for examination: Cough. 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 The heart size is normal. Mediastinum is unremarkable. Lung villa are clear. No acute bony abnormalities are seen. Impression: No acute cardiopulmonary disease. Electronically signed by: Viola Scott MD (09/03/2018 11:37 AM) [id number]
--- NOTE | 2018-09-03 11:53 | PN ---
DATE: 09/01/2018 PSYCHIATRIC PROGRESS NOTE This is a late entry 09/01/2018 covers elements not covered in my initial note. SUBJECTIVE: I met with the patient in the evening. The patient slept 7 hours previous night. The patient has been quiet, somewhat withdrawn and compliant with medications. REVIEW OF SYSTEMS: Ambulation impaired with walker. No CV, , pulmonary, eye, ENT system symptoms on review. MENTAL STATUS EXAM: Oriented to herself and situation. Speech has some latency, coherent. Abstraction fair, computation impaired, language function intact, attention span short. Mood and affect still somewhat depressed. LABORATORY DATA: Reviewed. IMPRESSION: Major depressive disorder with psychotic features; anxiety disorder, unspecified. Rest unchanged. PLAN: Continue Cymbalta, but we will increase from 30 mg a day to 60 mg a day. Maintain trazodone 50 mg at bedtime, february repeat x 1. Rest unchanged. MAN Patrice GRAF MD DR: ROLAN/angle JOB#: [id number] / [id number]
--- NOTE | 2018-09-03 12:25 | PDOC2 ---
CONSULT Date of Admission DATE: 08/29/18 Reason for Consult: Medical Management Referring Physician: Dr Slaughter Source: Caregiver, Chart review, Patient History of Present Illness: 77/F resides [facility] directly admitted to [facility] unit from [facility] ED for worsening depression and behaviors. Records indicate patient has expressed hopelessness, she's been tearful praying for , hoarding, and reportedly threw herself off her balcony. 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 I find her in her room continuing to express severely depressed mood and wanting to rather than live as she has been. She denies any physical complaints. Vital signs have been stable and labs overall unremarkable, may need insulin titration with Hemoglobin A1c 6.0 Pulmonary: Asthma CENTRAL NERVOUS SYSTEM: Periperal neuropathy GI: Diverticulosis, Other (celiac disease) Psych: Anxiety, Depression Musculoskeletal: low back pain (Chronic) Endocrine: Diabetes Past Surgical History pacemaker Smoke: No ALCOHOL: none Drugs: None Lives: Alf Domestic Violence: Neg Current Medications Current Medications Acetaminophen (Tylenol) 650 mg PRN Q6HRS PRN PO PAIN / TEMP Last administered on 08/29/18at 03:45; Start 08/29/18 at 01:45 Multi-Ingredient Ointment (Analgesic [place]) 1 calli PRN QID PRN TP MUSCLE PAIN; Start 08/29/18 at 01:45 Al Hydroxide/Mg Hydroxide (Mylanta Plus Xs) 15 ml PRN AFTMEALHC PRN PO DYSPEPSIA; Start 08/29/18 at 01:45 Magnesium Hydroxide (Milk Of Magnesia) 2,400 mg PRN QHS PRN PO CONSTIPATION; Start 08/29/18 at 01:45 Acetaminophen (Tylenol) 650 mg PRN Q4HRS PRN PO PAIN / TEMP; Start 08/29/18 at 01:45; Status Cancel Furosemide (Lasix) 20 mg DAILY PO Last administered on 09/03/18at 08:38; Start 08/29/18 at 09:00 Insulin Glargine (Lantus) 35 units DAILY SQ Last administered on 08/31/18at 08: 13; Start 08/29/18 at 09:00; Stop 09/03/18 at 01:53; Status DC Non-Formulary Medication (Aspirin ) 81 mg DAILY PO ; Start 08/29/18 at 09:00; Status UNV Non-Formulary Medication (Atorvastatin Calcium ) 10 mg DAILY PO ; Start at 09:00; Status UNV Insulin Human Lispro (HumaLOG) 8 units TIDAC SQ Last administered on at 08:00; Start 08/29/18 at 07:30 Non-Formulary Medication (Meloxicam ) 7.5 mg DAILY PO ; Start 08/29/18 at 09:00 ; Status UNV Non-Formulary Medication (Polyethylene Glycol 3350 (Miralax)) 17 gm DAILY PO ; Start 08/29/18 at 09:00; Status UNV Non-Formulary Medication (Trazodone Hcl ) 25 mg QHS PO ; Start 08/29/18 at 21:00 ; Status UNV Non-Formulary Medication (Venlafaxine Hcl (Venlafaxine Hcl Er)) 150 mg DAILY PO ; Start 08/29/18 at 09:00; Status UNV Meloxicam (Mobic) 7.5 mg DAILY PO Last administered on 09/03/18at 08:38; Start 08/29/18 at 09:00 Trazodone HCl (Desyrel) 25 mg PRN QHS PRN PO INSOMNIA; Start 08/29/18 at 03:00 Venlafaxine HCl (Effexor Xr) 150 mg DAILY PO Last administered on 08/29/18at 08: 11; Start 08/29/18 at 09:00; Stop 08/29/18 at 18:50; Status DC Atorvastatin Calcium (Lipitor) 10 mg HS PO Last administered on 09/02/18at 20: 41; Start 08/29/18 at 21:00 Aspirin (Children'S Aspirin) 81 mg DAILYWBKFT PO Last administered on at 08:37; Start 08/29/18 at 08:00 Polyethylene Glycol (miraLAX) 17 gm DAILY PO Last administered on 09/01/18at 08: 13; Start 08/29/18 at 09:00 Trazodone HCl (Desyrel) 50 mg QHS PO Last administered on 09/02/18at 20:41; Start 08/29/18 at 21:00 Duloxetine HCl (Cymbalta) 30 mg DAILY PO Last administered on 08/31/18at 08:13; Start 08/30/18 at 09:00; Stop 09/01/18 at 05:00; Status DC Duloxetine HCl (Cymbalta) 60 mg DAILY PO Last administered on 09/03/18at 08:38 ; Start 09/01/18 at 09:00 Throat Lozenges (Cepacol Sore Throat Lozenge) 1 christian PRN Q2HR PRN PO SORE THROAT ; Start 09/02/18 at 17:45 Aripiprazole (Abilify) 2 mg DAILY PO Last administered on 09/03/18at 08:40; Start 09/03/18 at 09:00 Insulin Glargine (Lantus) 25 units DAILY SQ Last administered on 09/03/18at 08: 01; Start 09/03/18 at 09:00 Active Scripts Active Reported Furosemide 20 Mg Tablet 20 Mg PO DAILY Tylenol (Acetaminophen) 325 Mg Tablet 650 Mg PO PRN Q4HRS Miralax (Polyethylene Glycol 3350) 17 Gm Powd.pack 17 Gm PO DAILY Aspirin 81 Mg Tab.chew 81 Mg PO DAILY Atorvastatin Calcium 10 Mg Tablet 10 Mg PO DAILY Novolog Flexpen (Insulin Aspart) 100 Unit/1 Ml Insuln.pen 8 Units SQ TIDAC Venlafaxine Hcl Er (Venlafaxine Hcl) 150 Mg Tab.er.24 150 Mg PO DAILY Trazodone Hcl 50 Mg Tablet 25 Mg PO QHS Meloxicam 7.5 Mg Tablet 7.5 Mg PO DAILY Lantus Solostar (Insulin Glargine,Hum.rec.anlog) 100 Unit/1 Ml Insuln.pen 35 Unit SQ DAILY Allergies: Coded Allergies: morphine (Verified Allergy, Severe, severe n/v, 08/29/18) Sulfa (Sulfonamide Antibiotics) (Verified Allergy, Intermediate, nausea, 08/29/18) amoxicillin (Verified Allergy, Intermediate, 08/29/18) diarrhea ciprofloxacin (Verified Allergy, Intermediate, 08/29/18) clavulanic acid (Verified Allergy, Intermediate, 08/29/18) diarrhea codeine (Verified Allergy, Intermediate, nausea, 08/29/18) erythromycin base (Verified Allergy, Intermediate, nausea, 08/29/18) meperidine (Verified Allergy, Intermediate, 08/29/18) tramadol (Verified Allergy, Intermediate, nausea, 11/6/18) Review of Systems: Constitutional: No fever or chills Eyes: No eye pain or blurred vision Skin: No rash or itching Cardiovascular: No chest pain, syncope, palpitations, dyspnea on exertion, or edema Respiratory: No cough or difficulty breathing Gastrointestinal: No nausea, vomiting, or abdominal pain Neurologic: No headaches or focal neurologic deficits Endocrine: No heat or cold intolerance Genitourinary: No incontinence or hematuria Musculoskeletal: No joint pain or swelling Lymphatics: No enlarged lymph nodes Psychiatric: No anxiety or depression Physical Exam: Gen.: Alert, no apparent distress HEENT: Normocephalic atraumatic no scleral icterus, oral mucosa pink and moist Neck: Supple, no lymphadenopathy, nontender Cardiovascular: Normal S1 and S2 no murmurs Pulmonary: Lungs are clear bilaterally with good air movement no respiratory distress Abdomen: Soft nontender non-distended, bowel sounds present no masses Extremities: No clubbing, cyanosis or edema, onychomycosis noted Neuro: Alert, cranial nerves II through XII grossly intact, no lateralizing neuro deficits Skin: Warm, dry VITALS Vital Signs Date Time Temp Pulse Resp B/P (MAP) Pulse Ox O2 Delivery O2 Flow Rate FiO2 09/03/18 07:00 97.6 85 16 121/78 (92) 96 Room Air Labs Laboratory Tests Test 09/01/18 16:21 09/01/18 19:29 09/02/18 07:14 09/02/18 11:37 Glucose (Fingerstick) 233 mg/dL (70-99) 246 mg/dL (70-99) 191 mg/dL (70-99) 228 mg/dL (70-99) Test 09/02/18 17:02 09/02/18 20:00 Glucose (Fingerstick) 132 mg/dL (70-99) 150 mg/dL (70-99) Assessment/Plan In general this is a 77 year old female with chronic medical problems well controlled with current medications and dosages. The exception is her hemoglobin A1c 6.0 indicating tighter glycemic control is needed. Follow daily trends, will offer treatments as indicated. Thank you Dr Slaughter, for allowing me to participate in the care of your patient. DELIA STORY DO Sep 03, 2018 12:25
[2018-09-03 15:56] VITALS: BP 123/72
--- NOTE | 2018-09-03 17:27 | PN ---
DATE: 09/02/2018 PSYCHIATRIC PROGRESS NOTE This late entry 09/02/2018 covers elements not covered in my initial note. SUBJECTIVE: I met with the patient in the evening. The patient slept 8-1/2 hours previous night, remains somewhat depressed. States she has cold symptoms because the air conditioning is blowing cold air on her head all night. I have discussed with nursing staff to adjust this, so cover it up with pillows. She admits being depressed, has been started on Cepacol lozenges. REVIEW OF SYSTEMS: Other than this, no CV, , pulmonary, eye system symptoms on review. MENTAL STATUS EXAM: Reasonably oriented. Speech is coherent, abstraction fair, computation impaired, language function intact, attention span short. Mood and affect remains depressed. LABORATORY DATA: Reviewed. IMPRESSION: Major depressive disorder; anxiety disorder, unspecified. Rest unchanged. PLAN: Continue Cymbalta 60 mg a day, augment with Abilify 2 mg a day. Maintain trazodone 50 mg at bedtime. MAN Patrice GRAF MD DR: ROLAN/angle JOB#: [id number] / [id number]
[2018-09-03] MEDS: ATORVASTATIN CALCIUM 10 MG TABLET. PO SCH (19:56)
[2018-09-03] MEDS: traZODone 50 MG TABLET. PO SCH (19:56)
--- NOTE | 2018-09-03 22:51 | PDOC ---
Exam Note: Asif Note: Please also refer to the separate dictated note~for this date of service dictated separately.~Patient seen individually. Discussed the patient with Nursing staff reviewed the chart.~Reviewed interim history and current functioning. Reviewed vital signs,~Labs/ Radiology~and current medications noted below. Continue current treatment with the changes noted in the dictated addendum note Assessment: Vital Signs: Vital Signs Date Time Temp Pulse Resp B/P (MAP) Pulse Ox O2 Delivery O2 Flow Rate FiO2 09/03/18 15:56 98.6 80 20 123/72 (89) 97 Room Air I&O Intake and Output 09/03/18 07:00 Intake Total 1080 ml Balance 1080 ml Intake Oral 1080 ml Labs: Laboratory Tests Test 09/03/18 07:43 09/03/18 11:56 09/03/18 17:01 09/03/18 19:32 Glucose (Fingerstick) 212 mg/dL (70-99) H 186 mg/dL (70-99) H 118 mg/dL (70-99) H 207 mg/dL (70-99) H Current Medications: Meds: Current Medications Acetaminophen (Tylenol) 650 mg PRN Q6HRS PRN PO PAIN / TEMP Last administered on 08/29/18at 03:45; Start 08/29/18 at 01:45 Multi-Ingredient Ointment (Analgesic [place]) 1 calli PRN QID PRN TP MUSCLE PAIN; Start 08/29/18 at 01:45 Al Hydroxide/Mg Hydroxide (Mylanta Plus Xs) 15 ml PRN AFTMEALHC PRN PO DYSPEPSIA; Start 08/29/18 at 01:45 Magnesium Hydroxide (Milk Of Magnesia) 2,400 mg PRN QHS PRN PO CONSTIPATION; Start 08/29/18 at 01:45 Acetaminophen (Tylenol) 650 mg PRN Q4HRS PRN PO PAIN / TEMP; Start 08/29/18 at 01:45; Status Cancel Furosemide (Lasix) 20 mg DAILY PO Last administered on 09/03/18at 08:38; Start 08/29/18 at 09:00 Insulin Glargine (Lantus) 35 units DAILY SQ Last administered on 08/31/18at 08: 13; Start 08/29/18 at 09:00; Stop 09/03/18 at 01:53; Status DC Non-Formulary Medication (Aspirin ) 81 mg DAILY PO ; Start 08/29/18 at 09:00; Status UNV Non-Formulary Medication (Atorvastatin Calcium ) 10 mg DAILY PO ; Start at 09:00; Status UNV Insulin Human Lispro (HumaLOG) 8 units TIDAC SQ Last administered on at 17:36; Start 08/29/18 at 07:30 Non-Formulary Medication (Meloxicam ) 7.5 mg DAILY PO ; Start 08/29/18 at 09:00 ; Status UNV Non-Formulary Medication (Polyethylene Glycol 3350 (Miralax)) 17 gm DAILY PO ; Start 08/29/18 at 09:00; Status UNV Non-Formulary Medication (Trazodone Hcl ) 25 mg QHS PO ; Start 08/29/18 at 21:00 ; Status UNV Non-Formulary Medication (Venlafaxine Hcl (Venlafaxine Hcl Er)) 150 mg DAILY PO ; Start 08/29/18 at 09:00; Status UNV Meloxicam (Mobic) 7.5 mg DAILY PO Last administered on 09/03/18at 08:38; Start 08/29/18 at 09:00 Trazodone HCl (Desyrel) 25 mg PRN QHS PRN PO INSOMNIA; Start 08/29/18 at 03:00 Venlafaxine HCl (Effexor Xr) 150 mg DAILY PO Last administered on 08/29/18at 08: 11; Start 08/29/18 at 09:00; Stop 08/29/18 at 18:50; Status DC Atorvastatin Calcium (Lipitor) 10 mg HS PO Last administered on 09/03/18at 19: 56; Start 08/29/18 at 21:00 Aspirin (Children'S Aspirin) 81 mg DAILYWBKFT PO Last administered on at 08:37; Start 08/29/18 at 08:00 Polyethylene Glycol (miraLAX) 17 gm DAILY PO Last administered on 09/01/18at 08: 13; Start 08/29/18 at 09:00 Trazodone HCl (Desyrel) 50 mg QHS PO Last administered on 09/03/18at 19:56; Start 08/29/18 at 21:00 Duloxetine HCl (Cymbalta) 30 mg DAILY PO Last administered on 08/31/18at 08:13; Start 08/30/18 at 09:00; Stop 09/01/18 at 05:00; Status DC Duloxetine HCl (Cymbalta) 60 mg DAILY PO Last administered on 09/03/18at 08:38 ; Start 09/01/18 at 09:00 Throat Lozenges (Cepacol Sore Throat Lozenge) 1 christian PRN Q2HR PRN PO SORE THROAT ; Start 09/02/18 at 17:45 Aripiprazole (Abilify) 2 mg DAILY PO Last administered on 09/03/18at 08:40; Start 09/03/18 at 09:00 Insulin Glargine (Lantus) 25 units DAILY SQ Last administered on 09/03/18at 08: 01; Start 09/03/18 at 09:00 Active Scripts Active Reported Furosemide 20 Mg Tablet 20 Mg PO DAILY Tylenol (Acetaminophen) 325 Mg Tablet 650 Mg PO PRN Q4HRS Miralax (Polyethylene Glycol 3350) 17 Gm Powd.pack 17 Gm PO DAILY Aspirin 81 Mg Tab.chew 81 Mg PO DAILY Atorvastatin Calcium 10 Mg Tablet 10 Mg PO DAILY Novolog Flexpen (Insulin Aspart) 100 Unit/1 Ml Insuln.pen 8 Units SQ TIDAC Venlafaxine Hcl Er (Venlafaxine Hcl) 150 Mg Tab.er.24 150 Mg PO DAILY Trazodone Hcl 50 Mg Tablet 25 Mg PO QHS Meloxicam 7.5 Mg Tablet 7.5 Mg PO DAILY Lantus Solostar (Insulin Glargine,Hum.rec.anlog) 100 Unit/1 Ml Insuln.pen 35 Unit SQ DAILY I have reviewed the current psychotropics carefully including drug interactions. Risk benefit ratio favors no change other than as noted in my dictated progress note. Diagnosis: Problems: (1) Anxiety disorder (2) Major depressive disorder, recurrent episode GIRMA GRAF MD Sep 03, 2018 22:51
[2018-09-04 06:38] VITALS: BP 137/75
[2018-09-04] MEDS: ASPIRIN 81 MG TAB.CHEW PO SCH (09:07)
[2018-09-04] MEDS: FUROSEMIDE 20 MG TABLET PO SCH (09:07)
[2018-09-04] MEDS: DULoxetine HCL 60 MG CAPSULE.DR PO SCH (09:08)
[2018-09-04] MEDS: MELOXICAM 7.5 MG TABLET PO SCH (09:08)
[2018-09-04] MEDS: ARIPiprazole 2 MG TABLET PO SCH (09:08)
[2018-09-04] MEDS: POLYETHYLENE GLYCOL 3350 17 GM PACKET. PO SCH (09:08)
[2018-09-04] MEDS: INSULIN GLARGINE 300 UNITS/3 ML INSULN.PEN. SQ SCH (09:13)
[2018-09-04] MEDS: INSULIN LISPRO 300 UNITS/3 ML INSULN.PEN. SQ SCH ×3 (09:15→17:32)
--- NOTE | 2018-09-04 12:54 | PN ---
DATE: 09/03/2018 PSYCHIATRIC PROGRESS NOTE This late entry 09/03/2018 covers elements not covered in my initial note. SUBJECTIVE: I met with the patient in the evening. The patient slept 5-3/4 hours previous night. She did well the previous night and during the day on 09/03/2018. She has had a productive cough. If chest x-ray is negative, we will defer to Dr. Henderson. 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 REVIEW OF SYSTEMS: Positive for the cough and tiredness. No CV, , GI, eye system symptoms on review. MENTAL STATUS EXAM: The patient is reasonably oriented. Speech is coherent, has some latency. Abstraction fair, computation impaired, language function intact, attention span short. Mood and affect still depressed. LABORATORY DATA: Reviewed. IMPRESSION: Major depressive disorder, recurrent, in partial remission; anxiety disorder, unspecified; upper respiratory infection. PLAN: Continue Cymbalta 60 mg a day and augment with Abilify 2 mg a day. Rest unchanged. MAN Patrice GRAF MD DR: ROLAN/angle JOB#: [id number] / [id number]
[2018-09-04 16:04] VITALS: BP 100/64
[2018-09-04] MEDS: traZODone 50 MG TABLET. PO SCH (19:38)
[2018-09-04] MEDS: ATORVASTATIN CALCIUM 10 MG TABLET. PO SCH (19:38)
--- NOTE | 2018-09-04 23:03 | PDOC ---
Exam Note: Asif Note: Please also refer to the separate dictated note~for this date of service dictated separately.~Patient seen individually. Discussed the patient with Nursing staff reviewed the chart.~Reviewed interim history and current functioning. Reviewed vital signs,~Labs/ Radiology~and current medications noted below. Continue current treatment with the changes noted in the dictated addendum note Assessment: Vital Signs: Vital Signs Date Time Temp Pulse Resp B/P (MAP) Pulse Ox O2 Delivery O2 Flow Rate FiO2 09/04/18 16:04 97.8 88 20 100/64 (76) 98 09/04/18 06:38 Room Air I&O Intake and Output 09/04/18 07:00 Intake Total 840 ml Balance 840 ml Intake Oral 840 ml Labs: Laboratory Tests Test 09/04/18 07:16 09/04/18 12:33 09/04/18 17:21 09/04/18 19:40 Glucose (Fingerstick) 201 mg/dL (70-99) H 139 mg/dL (70-99) H 162 mg/dL (70-99) H 225 mg/dL (70-99) H Current Medications: Meds: Current Medications Acetaminophen (Tylenol) 650 mg PRN Q6HRS PRN PO PAIN / TEMP Last administered on 08/29/18at 03:45; Start 08/29/18 at 01:45 Multi-Ingredient Ointment (Analgesic [place]) 1 calli PRN QID PRN TP MUSCLE PAIN; Start 08/29/18 at 01:45 Al Hydroxide/Mg Hydroxide (Mylanta Plus Xs) 15 ml PRN AFTMEALHC PRN PO DYSPEPSIA; Start 08/29/18 at 01:45 Magnesium Hydroxide (Milk Of Magnesia) 2,400 mg PRN QHS PRN PO CONSTIPATION; Start 08/29/18 at 01:45 Acetaminophen (Tylenol) 650 mg PRN Q4HRS PRN PO PAIN / TEMP; Start 08/29/18 at 01:45; Status Cancel Furosemide (Lasix) 20 mg DAILY PO Last administered on 09/04/18at 09:07; Start 08/29/18 at 09:00 Insulin Glargine (Lantus) 35 units DAILY SQ Last administered on 08/31/18at 08: 13; Start 08/29/18 at 09:00; Stop 09/03/18 at 01:53; Status DC Non-Formulary Medication (Aspirin ) 81 mg DAILY PO ; Start 08/29/18 at 09:00; Status UNV Non-Formulary Medication (Atorvastatin Calcium ) 10 mg DAILY PO ; Start at 09:00; Status UNV Insulin Human Lispro (HumaLOG) 8 units TIDAC SQ Last administered on at 17:32; Start 08/29/18 at 07:30 Non-Formulary Medication (Meloxicam ) 7.5 mg DAILY PO ; Start 08/29/18 at 09:00 ; Status UNV Non-Formulary Medication (Polyethylene Glycol 3350 (Miralax)) 17 gm DAILY PO ; Start 08/29/18 at 09:00; Status UNV Non-Formulary Medication (Trazodone Hcl ) 25 mg QHS PO ; Start 08/29/18 at 21:00 ; Status UNV Non-Formulary Medication (Venlafaxine Hcl (Venlafaxine Hcl Er)) 150 mg DAILY PO ; Start 08/29/18 at 09:00; Status UNV Meloxicam (Mobic) 7.5 mg DAILY PO Last administered on 09/04/18at 09:08; Start 08/29/18 at 09:00 Trazodone HCl (Desyrel) 25 mg PRN QHS PRN PO INSOMNIA; Start 08/29/18 at 03:00 Venlafaxine HCl (Effexor Xr) 150 mg DAILY PO Last administered on 08/29/18at 08: 11; Start 08/29/18 at 09:00; Stop 08/29/18 at 18:50; Status DC Atorvastatin Calcium (Lipitor) 10 mg HS PO Last administered on 09/04/18at 19: 38; Start 08/29/18 at 21:00 Aspirin (Children'S Aspirin) 81 mg DAILYWBKFT PO Last administered on at 09:07; Start 08/29/18 at 08:00 Polyethylene Glycol (miraLAX) 17 gm DAILY PO Last administered on 09/04/18at 09 :08; Start 08/29/18 at 09:00 Trazodone HCl (Desyrel) 50 mg QHS PO Last administered on 09/04/18at 19:38; Start 11/6/18 at 21:00 Duloxetine HCl (Cymbalta) 30 mg DAILY PO Last administered on 08/31/18at 08:13; Start 08/30/18 at 09:00; Stop 09/01/18 at 05:00; Status DC Duloxetine HCl (Cymbalta) 60 mg DAILY PO Last administered on 09/04/18at 09:08 ; Start 09/01/18 at 09:00 Throat Lozenges (Cepacol Sore Throat Lozenge) 1 christian PRN Q2HR PRN PO SORE THROAT ; Start 09/02/18 at 17:45 Aripiprazole (Abilify) 2 mg DAILY PO Last administered on 09/04/18at 09:08; Start 09/03/18 at 09:00 Insulin Glargine (Lantus) 25 units DAILY SQ Last administered on 09/04/18at 09: 13; Start 09/03/18 at 09:00 Active Scripts Active Reported Furosemide 20 Mg Tablet 20 Mg PO DAILY Tylenol (Acetaminophen) 325 Mg Tablet 650 Mg PO PRN Q4HRS Miralax (Polyethylene Glycol 3350) 17 Gm Powd.pack 17 Gm PO DAILY Aspirin 81 Mg Tab.chew 81 Mg PO DAILY Atorvastatin Calcium 10 Mg Tablet 10 Mg PO DAILY Novolog Flexpen (Insulin Aspart) 100 Unit/1 Ml Insuln.pen 8 Units SQ TIDAC Venlafaxine Hcl Er (Venlafaxine Hcl) 150 Mg Tab.er.24 150 Mg PO DAILY Trazodone Hcl 50 Mg Tablet 25 Mg PO QHS Meloxicam 7.5 Mg Tablet 7.5 Mg PO DAILY Lantus Solostar (Insulin Glargine,Hum.rec.anlog) 100 Unit/1 Ml Insuln.pen 35 Unit SQ DAILY I have reviewed the current psychotropics carefully including drug interactions. Risk benefit ratio favors no change other than as noted in my dictated progress note. Diagnosis: Problems: (1) Anxiety disorder (2) Major depressive disorder, recurrent episode GIRMA GRAF MD Sep 04, 2018 23:03
[2018-09-05 05:51] VITALS: BP 107/66
[2018-09-05] MEDS: INSULIN LISPRO 300 UNITS/3 ML INSULN.PEN. SQ SCH ×3 (08:45→17:26)
[2018-09-05] MEDS: MELOXICAM 7.5 MG TABLET PO SCH (08:46)
[2018-09-05] MEDS: POLYETHYLENE GLYCOL 3350 17 GM PACKET. PO SCH (08:46)
[2018-09-05] MEDS: ARIPiprazole 2 MG TABLET PO SCH (08:46)
[2018-09-05] MEDS: ASPIRIN 81 MG TAB.CHEW PO SCH (08:46)
[2018-09-05] MEDS: FUROSEMIDE 20 MG TABLET PO SCH (08:46)
[2018-09-05] MEDS: DULoxetine HCL 60 MG CAPSULE.DR PO SCH (08:46)
[2018-09-05] MEDS: INSULIN GLARGINE 300 UNITS/3 ML INSULN.PEN. SQ SCH (08:48)
[2018-09-05 15:28] VITALS: BP 113/71
[2018-09-05] MEDS: traZODone 50 MG TABLET. PO SCH (19:47)
[2018-09-05] MEDS: ATORVASTATIN CALCIUM 10 MG TABLET. PO SCH (19:47)
--- NOTE | 2018-09-05 20:25 | PN ---
DATE: 09/04/2018 This is a late entry 09/04/2018 covers elements not covered in my initial note. SUBJECTIVE: I met with the patient in the early afternoon. The patient slept 6-3/4 hours previous night. She has been somewhat withdrawn, dysphoric, but part of this is because of upper respiratory tract infection. REVIEW OF SYSTEMS: Ambulation impaired with walker. No CV, , eye, ENT system symptoms on review. Does have a slight sore throat. MENTAL STATUS EXAM: Reasonably oriented. Speech moderate latency, often responses monosyllabic. Abstraction fair, computation impaired, language function intact, attention span short. Memory is reasonable. Mood is dysphoric. Affect is mood congruent. No suicidal or homicidal ideation. LABORATORY DATA: Reviewed. IMPRESSION: Major depressive disorder in partial remission. Rest as above. PLAN: Continue Cymbalta 60 mg a day, which is being augmented with Abilify 2 mg a day, trazodone at bedtime, may repeat x 1 for insomnia. Rest unchanged from initial note. MAN Patrice GRAF MD DR: ROLAN/angle JOB#: [id number] / [id number]
--- NOTE | 2018-09-05 22:43 | PDOC ---
Exam Note: Asif Note: Please also refer to the separate dictated note~for this date of service dictated separately.~Patient seen individually. Discussed the patient with Nursing staff reviewed the chart.~Reviewed interim history and current functioning. Reviewed vital signs,~Labs/ Radiology~and current medications noted below. Continue current treatment with the changes noted in the dictated addendum note Assessment: Vital Signs: Vital Signs Date Time Temp Pulse Resp B/P (MAP) Pulse Ox O2 Delivery O2 Flow Rate FiO2 09/05/18 15:28 97.1 80 16 113/71 (85) 99 Room Air I&O Intake and Output 09/05/18 07:00 Intake Total 1080 ml Balance 1080 ml Intake Oral 1080 ml # Voids 1 # Bowel Movements 1 Labs: Laboratory Tests Test 09/05/18 07:26 09/05/18 12:21 09/05/18 16:13 09/05/18 19:23 Glucose (Fingerstick) 187 mg/dL (70-99) H 170 mg/dL (70-99) H 175 mg/dL (70-99) H 205 mg/dL (70-99) H Current Medications: Meds: Current Medications Acetaminophen (Tylenol) 650 mg PRN Q6HRS PRN PO PAIN / TEMP Last administered on 08/29/18at 03:45; Start 08/29/18 at 01:45 Multi-Ingredient Ointment (Analgesic [place]) 1 calli PRN QID PRN TP MUSCLE PAIN; Start 08/29/18 at 01:45 Al Hydroxide/Mg Hydroxide (Mylanta Plus Xs) 15 ml PRN AFTMEALHC PRN PO DYSPEPSIA; Start 08/29/18 at 01:45 Magnesium Hydroxide (Milk Of Magnesia) 2,400 mg PRN QHS PRN PO CONSTIPATION; Start 08/29/18 at 01:45 Acetaminophen (Tylenol) 650 mg PRN Q4HRS PRN PO PAIN / TEMP; Start 08/29/18 at 01:45; Status Cancel Furosemide (Lasix) 20 mg DAILY PO Last administered on 09/05/18at 08:46; Start 08/29/18 at 09:00 Insulin Glargine (Lantus) 35 units DAILY SQ Last administered on 08/31/18at 08: 13; Start 08/29/18 at 09:00; Stop 09/03/18 at 01:53; Status DC Non-Formulary Medication (Aspirin ) 81 mg DAILY PO ; Start 08/29/18 at 09:00; Status UNV Non-Formulary Medication (Atorvastatin Calcium ) 10 mg DAILY PO ; Start at 09:00; Status UNV Insulin Human Lispro (HumaLOG) 8 units TIDAC SQ Last administered on at 17:26; Start 08/29/18 at 07:30 Non-Formulary Medication (Meloxicam ) 7.5 mg DAILY PO ; Start 08/29/18 at 09:00 ; Status UNV Non-Formulary Medication (Polyethylene Glycol 3350 (Miralax)) 17 gm DAILY PO ; Start 08/29/18 at 09:00; Status UNV Non-Formulary Medication (Trazodone Hcl ) 25 mg QHS PO ; Start 08/29/18 at 21:00 ; Status UNV Non-Formulary Medication (Venlafaxine Hcl (Venlafaxine Hcl Er)) 150 mg DAILY PO ; Start 08/29/18 at 09:00; Status UNV Meloxicam (Mobic) 7.5 mg DAILY PO Last administered on 09/05/18at 08:46; Start 08/29/18 at 09:00 Trazodone HCl (Desyrel) 25 mg PRN QHS PRN PO INSOMNIA; Start 08/29/18 at 03:00 Venlafaxine HCl (Effexor Xr) 150 mg DAILY PO Last administered on 08/29/18at 08: 11; Start 08/29/18 at 09:00; Stop 08/29/18 at 18:50; Status DC Atorvastatin Calcium (Lipitor) 10 mg HS PO Last administered on 09/05/18at 19: 47; Start 08/29/18 at 21:00 Aspirin (Children'S Aspirin) 81 mg DAILYWBKFT PO Last administered on at 08:46; Start 08/29/18 at 08:00 Polyethylene Glycol (miraLAX) 17 gm DAILY PO Last administered on 09/05/18at 08 :46; Start 08/29/18 at 09:00 Trazodone HCl (Desyrel) 50 mg QHS PO Last administered on 09/05/18at 19:47; Start 08/29/18 at 21:00 Duloxetine HCl (Cymbalta) 30 mg DAILY PO Last administered on 08/31/18 08:13; Start 08/30/18 at 09:00; Stop 09/01/18 at 05:00; Status DC Duloxetine HCl (Cymbalta) 60 mg DAILY PO Last administered on 09/05/18at 08:46 ; Start 09/01/18 at 09:00 Throat Lozenges (Cepacol Sore Throat Lozenge) 1 christian PRN Q2HR PRN PO SORE THROAT ; Start 09/02/18 at 17:45 Aripiprazole (Abilify) 2 mg DAILY PO Last administered on 09/05/18at 08:46; Start 09/03/18 at 09:00 Insulin Glargine (Lantus) 25 units DAILY SQ Last administered on 09/05/18at 08: 48; Start 09/03/18 at 09:00 Guaifenesin (Mucinex Er) 600 mg BID PO Last administered on 09/05/18at 19:47; Start 09/05/18 at 21:00 Active Scripts Active Reported Furosemide 20 Mg Tablet 20 Mg PO DAILY Tylenol (Acetaminophen) 325 Mg Tablet 650 Mg PO PRN Q4HRS Miralax (Polyethylene Glycol 3350) 17 Gm Powd.pack 17 Gm PO DAILY Aspirin 81 Mg Tab.chew 81 Mg PO DAILY Atorvastatin Calcium 10 Mg Tablet 10 Mg PO DAILY Novolog Flexpen (Insulin Aspart) 100 Unit/1 Ml Insuln.pen 8 Units SQ TIDAC Venlafaxine Hcl Er (Venlafaxine Hcl) 150 Mg Tab.er.24 150 Mg PO DAILY Trazodone Hcl 50 Mg Tablet 25 Mg PO QHS Meloxicam 7.5 Mg Tablet 7.5 Mg PO DAILY Lantus Solostar (Insulin Glargine,Hum.rec.anlog) 100 Unit/1 Ml Insuln.pen 35 Unit SQ DAILY I have reviewed the current psychotropics carefully including drug interactions. Risk benefit ratio favors no change other than as noted in my dictated progress note. Diagnosis: Problems: (1) Anxiety disorder (2) Major depressive disorder, recurrent episode GIRMA GRAF MD Sep 05, 2018 22:43
[2018-09-06 05:54] VITALS: BP 115/67
[2018-09-06 07:53] LABS: HEMATOCRIT 39.5 % (36.0-47.0); HEMOGLOBIN 13.1 g/dL (12.0-15.5); RED BLOOD COUNT 4.5 x10^6/uL (3.50-5.40); RED CELL DISTRIBUTION WIDTH 14.1 % (11.5-14.5); WHITE BLOOD COUNT 6.9 x10^3/uL (4.0-11.0)
[2018-09-06 08:05] LABS: ALBUMIN 3.2 g/dL (3.4-5.0); ALBUMIN/GLOBULIN RATIO 0.9 (1.0-1.7); CALCIUM 8.7 mg/dL (8.5-10.1); CREATININE 1.1 mg/dL (0.6-1.0); GFR 47.9; TOTAL BILIRUBIN 1.6 mg/dL (0.2-1.0); TOTAL PROTEIN 6.9 g/dL (6.4-8.2)
[2018-09-06] MEDS: ARIPiprazole 2 MG TABLET PO SCH (08:54)
[2018-09-06] MEDS: ASPIRIN 81 MG TAB.CHEW PO SCH (08:54)
[2018-09-06] MEDS: DULoxetine HCL 60 MG CAPSULE.DR PO SCH (08:54)
[2018-09-06] MEDS: MELOXICAM 7.5 MG TABLET PO SCH (08:54)
[2018-09-06] MEDS: FUROSEMIDE 20 MG TABLET PO SCH (08:54)
[2018-09-06] MEDS: POLYETHYLENE GLYCOL 3350 17 GM PACKET. PO SCH (08:54)
[2018-09-06] MEDS: INSULIN LISPRO 300 UNITS/3 ML INSULN.PEN. SQ SCH ×3 (08:56→16:30)
[2018-09-06] MEDS: INSULIN GLARGINE 300 UNITS/3 ML INSULN.PEN. SQ SCH (08:56)
[2018-09-06] MEDS ORDERED: MINERAL OIL/PETROLATUM,WHITE OPHTH OINT 3.5GM TUBE. OU PRN (16:30)
[2018-09-06] MEDS ORDERED: BENZOCAINE/MENTHOL LOZNGE 18'S BOX. PO PRN (16:30)
[2018-09-06 16:46] VITALS: BP 106/72
--- NOTE | 2018-09-06 20:23 | PN ---
DATE: 09/05/2018 PSYCHIATRIC PROGRESS NOTE This late entry 09/05/2018 covers elements not covered in my initial note. SUBJECTIVE: I met with the patient on the evening of 09/05/2018. The patient slept 4-1/2 hours previous night. She remains somewhat tearful, but denies suicidal ideation. She has had some cough and upper respiratory tract infection symptoms addressed by Dr. Govea. She has been somewhat somatic, anxious, wanting an eye ointment. Nursing staff will call her prior, Pharmacy clarify what it was she was taking and we will restart it here. REVIEW OF SYSTEMS: No CV, , pulmonary, eye, ENT system symptoms on review. Gait unsteady with walker. Complains of cough and URI symptoms. MENTAL STATUS EXAM: Reasonably oriented. Speech has some latency, coherent, often responses monosyllabic. Abstraction fair, computation impaired, language function intact, attention span short. Mood and affect withdrawn. No suicidal ideation. LABORATORY DATA: Reviewed. IMPRESSION: Major depressive disorder, recurrent, in partial remission; anxiety disorder, unspecified. Rest as above. PLAN: Continue Cymbalta 60 mg a day, which is being augmented with Abilify 2 mg a day, trazodone 50 at bedtime p.r.n., february repeat x 1 for insomnia. MAN Patrice GRAF MD DR: ROLAN/angle JOB#: [id number] / [id number]
[2018-09-06] MEDS: traZODone 50 MG TABLET. PO SCH (21:00)
[2018-09-06] MEDS: ATORVASTATIN CALCIUM 10 MG TABLET. PO SCH (21:05)
--- NOTE | 2018-09-06 22:41 | PDOC ---
Exam Note: Asif Note: Please also refer to the separate dictated note~for this date of service dictated separately.~Patient seen individually. Discussed the patient with Nursing staff reviewed the chart.~Reviewed interim history and current functioning. Reviewed vital signs,~Labs/ Radiology~and current medications noted below. Continue current treatment with the changes noted in the dictated addendum note Assessment: Vital Signs: Vital Signs Date Time Temp Pulse Resp B/P (MAP) Pulse Ox O2 Delivery O2 Flow Rate FiO2 09/06/18 16:46 97.3 96 18 106/72 (83) 99 Room Air I&O Intake and Output 09/06/18 07:00 Intake Total 1080 ml Balance 1080 ml Intake Oral 1080 ml Labs: Laboratory Tests Test 09/06/18 07:30 09/06/18 07:37 09/06/18 11:53 09/06/18 17:19 White Blood Count 6.9 x10^3/uL (4.0-11.0) Red Blood Count 4.50 x10^6/uL (3.50-5.40) Hemoglobin 13.1 g/dL (12.0-15.5) Hematocrit 39.5 % (36.0-47.0) Mean Corpuscular Volume 88 fL (79-100) Mean Corpuscular Hemoglobin 29 pg (25-35) Mean Corpuscular Hemoglobin Concent 33 g/dL (31-37) Red Cell Distribution Width 14.1 % (11.5-14.5) Platelet Count 138 x10^3/uL (140-400) L Sodium Level 135 mmol/L (136-145) L Potassium Level 4.0 mmol/L (3.5-5.1) Chloride Level 99 mmol/L (98-107) Carbon Dioxide Level 23 mmol/L (21-32) Anion Gap 13 (6-14) Blood Urea Nitrogen 21 mg/dL (7-20) H Creatinine 1.1 mg/dL (0.6-1.0) H Estimated GFR (Cockcroft-Gault) 47.9 BUN/Creatinine Ratio 19 (6-20) Glucose Level 214 mg/dL (70-99) H Calcium Level 8.7 mg/dL (8.5-10.1) Total Bilirubin 1.6 mg/dL (0.2-1.0) H Aspartate Amino Transferase (AST) 17 U/L (15-37) Alanine Aminotransferase (ALT) 17 U/L (14-59) Alkaline Phosphatase 108 U/L (46-116) Total Protein 6.9 g/dL (6.4-8.2) Albumin 3.2 g/dL (3.4-5.0) L Albumin/Globulin Ratio 0.9 (1.0-1.7) L Glucose (Fingerstick) 212 mg/dL (70-99) H 157 mg/dL (70-99) H 149 mg/dL (70-99) H Test 09/06/18 19:47 Glucose (Fingerstick) 270 mg/dL (70-99) H Current Medications: Meds: Current Medications Acetaminophen (Tylenol) 650 mg PRN Q6HRS PRN PO PAIN / TEMP Last administered on 08/29/18at 03:45; Start 08/29/18 at 01:45 Multi-Ingredient Ointment (Analgesic [place]) 1 calli PRN QID PRN TP MUSCLE PAIN; Start 08/29/18 at 01:45 Al Hydroxide/Mg Hydroxide (Mylanta Plus Xs) 15 ml PRN AFTMEALHC PRN PO DYSPEPSIA; Start 08/29/18 at 01:45 Magnesium Hydroxide (Milk Of Magnesia) 2,400 mg PRN QHS PRN PO CONSTIPATION; Start 08/29/18 at 01:45 Acetaminophen (Tylenol) 650 mg PRN Q4HRS PRN PO PAIN / TEMP; Start 08/29/18 at 01:45; Status Cancel Furosemide (Lasix) 20 mg DAILY PO Last administered on 09/06/18at 08:54; Start 08/29/18 at 09:00 Insulin Glargine (Lantus) 35 units DAILY SQ Last administered on 08/31/18at 08: 13; Start 08/29/18 at 09:00; Stop 09/03/18 at 01:53; Status DC Non-Formulary Medication (Aspirin ) 81 mg DAILY PO ; Start 08/29/18 at 09:00; Status UNV Non-Formulary Medication (Atorvastatin Calcium ) 10 mg DAILY PO ; Start at 09:00; Status UNV Insulin Human Lispro (HumaLOG) 8 units TIDAC SQ Last administered on at 12:53; Start 08/29/18 at 07:30 Non-Formulary Medication (Meloxicam ) 7.5 mg DAILY PO ; Start 08/29/18 at 09:00 ; Status UNV Non-Formulary Medication (Polyethylene Glycol 3350 (Miralax)) 17 gm DAILY PO ; Start 08/29/18 at 09:00; Status UNV Non-Formulary Medication (Trazodone Hcl ) 25 mg QHS PO ; Start 08/29/18 at 21:00 ; Status UNV Non-Formulary Medication (Venlafaxine Hcl (Venlafaxine Hcl Er)) 150 mg DAILY PO ; Start 08/29/18 at 09:00; Status UNV Meloxicam (Mobic) 7.5 mg DAILY PO Last administered on 09/06/18at 08:54; Start 08/29/18 at 09:00 Trazodone HCl (Desyrel) 25 mg PRN QHS PRN PO INSOMNIA; Start 08/29/18 at 03:00 Venlafaxine HCl (Effexor Xr) 150 mg DAILY PO Last administered on 08/29/18at 08: 11; Start 08/29/18 at 09:00; Stop 08/29/18 at 18:50; Status DC Atorvastatin Calcium (Lipitor) 10 mg HS PO Last administered on 09/06/18at 21: 05; Start 08/29/18 at 21:00 Aspirin (Children'S Aspirin) 81 mg DAILYWBKFT PO Last administered on at 08:54; Start 08/29/18 at 08:00 Polyethylene Glycol (miraLAX) 17 gm DAILY PO Last administered on 09/06/18at 08 :54; Start 08/29/18 at 09:00 Trazodone HCl (Desyrel) 50 mg QHS PO Last administered on 09/06/18at 21:00; Start 08/29/18 at 21:00 Duloxetine HCl (Cymbalta) 30 mg DAILY PO Last administered on 08/31/18at 08:13; Start 08/30/18 at 09:00; Stop 09/01/18 at 05:00; Status DC Duloxetine HCl (Cymbalta) 60 mg DAILY PO Last administered on 09/06/18at 08:54 ; Start 09/01/18 at 09:00 Throat Lozenges (Cepacol Sore Throat Lozenge) 1 christian PRN Q2HR PRN PO SORE THROAT ; Start 09/02/18 at 17:45 Aripiprazole (Abilify) 2 mg DAILY PO Last administered on 09/06/18at 08:54; Start 09/03/18 at 09:00 Insulin Glargine (Lantus) 25 units DAILY SQ Last administered on 09/06/18at 08: 56; Start 09/03/18 at 09:00 Guaifenesin (Mucinex Er) 600 mg BID PO Last administered on 09/06/18at 21:05; Start 09/05/18 at 21:00 Multi-Ingred Cream/Lotion/Oil/ Oint (Artificial Tears Eye Ointment) 1 calli PRN Q2HR PRN OU DRY EYE; Start 09/06/18 at 16:30 Throat Lozenges (Cepacol Sore Throat Lozenge) 1 christian PRN Q2HR PRN PO SORE THROAT ; Start 09/06/18 at 16:30; Status Cancel Active Scripts Active Reported Furosemide 20 Mg Tablet 20 Mg PO DAILY Tylenol (Acetaminophen) 325 Mg Tablet 650 Mg PO PRN Q4HRS Miralax (Polyethylene Glycol 3350) 17 Gm Powd.pack 17 Gm PO DAILY Aspirin 81 Mg Tab.chew 81 Mg PO DAILY Atorvastatin Calcium 10 Mg Tablet 10 Mg PO DAILY Novolog Flexpen (Insulin Aspart) 100 Unit/1 Ml Insuln.pen 8 Units SQ TIDAC Venlafaxine Hcl Er (Venlafaxine Hcl) 150 Mg Tab.er.24 150 Mg PO DAILY Trazodone Hcl 50 Mg Tablet 25 Mg PO QHS Meloxicam 7.5 Mg Tablet 7.5 Mg PO DAILY Lantus Solostar (Insulin Glargine,Hum.rec.anlog) 100 Unit/1 Ml Insuln.pen 35 Unit SQ DAILY I have reviewed the current psychotropics carefully including drug interactions. Risk benefit ratio favors no change other than as noted in my dictated progress note. Diagnosis: Problems: (1) Anxiety disorder (2) Major depressive disorder, recurrent episode GIRMA GRAF MD Sep 06, 2018 22:41
[2018-09-07 06:01] VITALS: BP 107/64
[2018-09-07] MEDS: POLYETHYLENE GLYCOL 3350 17 GM PACKET. PO SCH (09:10)
[2018-09-07] MEDS: ARIPiprazole 2 MG TABLET PO SCH (09:11)
[2018-09-07] MEDS: ASPIRIN 81 MG TAB.CHEW PO SCH (09:11)
[2018-09-07] MEDS: FUROSEMIDE 20 MG TABLET PO SCH (09:11)
[2018-09-07] MEDS: MELOXICAM 7.5 MG TABLET PO SCH (09:11)
[2018-09-07] MEDS: DULoxetine HCL 60 MG CAPSULE.DR PO SCH (09:11)
[2018-09-07] MEDS: INSULIN LISPRO 300 UNITS/3 ML INSULN.PEN. SQ SCH ×4 (09:13→17:31)
[2018-09-07] MEDS: INSULIN GLARGINE 300 UNITS/3 ML INSULN.PEN. SQ SCH (09:14)
[2018-09-07 15:58] VITALS: BP 104/50
[2018-09-07] MEDS: traZODone 50 MG TABLET. PO SCH (19:27)
[2018-09-07] MEDS: ATORVASTATIN CALCIUM 10 MG TABLET. PO SCH (19:27)
--- NOTE | 2018-09-07 22:56 | PDOC ---
Exam Note: Asif Note: Please also refer to the separate dictated note~for this date of service dictated separately.~Patient seen individually. Discussed the patient with Nursing staff reviewed the chart.~Reviewed interim history and current functioning. Reviewed vital signs,~Labs/ Radiology~and current medications noted below. Continue current treatment with the changes noted in the dictated addendum note Assessment: Vital Signs: Vital Signs Date Time Temp Pulse Resp B/P (MAP) Pulse Ox O2 Delivery O2 Flow Rate FiO2 09/07/18 15:58 98.2 82 20 104/50 (68) 98 Room Air I&O Intake and Output 09/07/18 07:00 Intake Total 840 ml Balance 840 ml Intake Oral 840 ml # Voids 1 Labs: Laboratory Tests Test 09/07/18 07:20 09/07/18 11:29 09/07/18 17:02 Glucose (Fingerstick) 192 mg/dL (70-99) H 346 mg/dL (70-99) H 106 mg/dL (70-99) H Current Medications: Meds: Current Medications Acetaminophen (Tylenol) 650 mg PRN Q6HRS PRN PO PAIN / TEMP Last administered on 08/29/18at 03:45; Start 08/29/18 at 01:45 Multi-Ingredient Ointment (Analgesic [place]) 1 calli PRN QID PRN TP MUSCLE PAIN; Start 08/29/18 at 01:45 Al Hydroxide/Mg Hydroxide (Mylanta Plus Xs) 15 ml PRN AFTMEALHC PRN PO DYSPEPSIA; Start 08/29/18 at 01:45 Magnesium Hydroxide (Milk Of Magnesia) 2,400 mg PRN QHS PRN PO CONSTIPATION; Start 08/29/18 at 01:45 Acetaminophen (Tylenol) 650 mg PRN Q4HRS PRN PO PAIN / TEMP; Start 08/29/18 at 01:45; Status Cancel Furosemide (Lasix) 20 mg DAILY PO Last administered on 09/07/18at 09:11; Start 08/29/18 at 09:00 Insulin Glargine (Lantus) 35 units DAILY SQ Last administered on 08/31/18at 08: 13; Start 08/29/18 at 09:00; Stop 09/03/18 at 01:53; Status DC Non-Formulary Medication (Aspirin ) 81 mg DAILY PO ; Start 08/29/18 at 09:00; Status UNV Non-Formulary Medication (Atorvastatin Calcium ) 10 mg DAILY PO ; Start at 09:00; Status UNV Insulin Human Lispro (HumaLOG) 8 units TIDAC SQ Last administered on at 12:08; Start 08/29/18 at 07:30 Non-Formulary Medication (Meloxicam ) 7.5 mg DAILY PO ; Start 08/29/18 at 09:00 ; Status UNV Non-Formulary Medication (Polyethylene Glycol 3350 (Miralax)) 17 gm DAILY PO ; Start 08/29/18 at 09:00; Status UNV Non-Formulary Medication (Trazodone Hcl ) 25 mg QHS PO ; Start 08/29/18 at 21:00 ; Status UNV Non-Formulary Medication (Venlafaxine Hcl (Venlafaxine Hcl Er)) 150 mg DAILY PO ; Start 08/29/18 at 09:00; Status UNV Meloxicam (Mobic) 7.5 mg DAILY PO Last administered on 09/07/18at 09:11; Start 08/29/18 at 09:00 Trazodone HCl (Desyrel) 25 mg PRN QHS PRN PO INSOMNIA; Start 08/29/18 at 03:00 Venlafaxine HCl (Effexor Xr) 150 mg DAILY PO Last administered on 08/29/18at 08: 11; Start 08/29/18 at 09:00; Stop 08/29/18 at 18:50; Status DC Atorvastatin Calcium (Lipitor) 10 mg HS PO Last administered on 09/07/18at 19: 27; Start 08/29/18 at 21:00 Aspirin (Children'S Aspirin) 81 mg DAILYWBKFT PO Last administered on at 09:11; Start 08/29/18 at 08:00 Polyethylene Glycol (miraLAX) 17 gm DAILY PO Last administered on 09/07/18at 09 :10; Start 08/29/18 at 09:00 Trazodone HCl (Desyrel) 50 mg QHS PO Last administered on 09/07/18at 19:27; Start 08/29/18 at 21:00 Duloxetine HCl (Cymbalta) 30 mg DAILY PO Last administered on 08/31/18at 08:13; Start 08/30/18 at 09:00; Stop 09/01/18 at 05:00; Status DC Duloxetine HCl (Cymbalta) 60 mg DAILY PO Last administered on 09/07/18at 09:11 ; Start 09/01/18 at 09:00 Throat Lozenges (Cepacol Sore Throat Lozenge) 1 christian PRN Q2HR PRN PO SORE THROAT ; Start 09/02/18 at 17:45 Aripiprazole (Abilify) 2 mg DAILY PO Last administered on 09/07/18at 09:11; Start 09/03/18 at 09:00 Insulin Glargine (Lantus) 25 units DAILY SQ Last administered on 09/07/18at 09: 14; Start 09/03/18 at 09:00 Guaifenesin (Mucinex Er) 600 mg BID PO Last administered on 09/07/18at 19:27; Start 09/05/18 at 21:00 Multi-Ingred Cream/Lotion/Oil/ Oint (Artificial Tears Eye Ointment) 1 calli PRN Q2HR PRN OU DRY EYE; Start 09/06/18 at 16:30 Throat Lozenges (Cepacol Sore Throat Lozenge) 1 christian PRN Q2HR PRN PO SORE THROAT ; Start 09/06/18 at 16:30; Status Cancel Active Scripts Active Reported Furosemide 20 Mg Tablet 20 Mg PO DAILY Tylenol (Acetaminophen) 325 Mg Tablet 650 Mg PO PRN Q4HRS Miralax (Polyethylene Glycol 3350) 17 Gm Powd.pack 17 Gm PO DAILY Aspirin 81 Mg Tab.chew 81 Mg PO DAILY Atorvastatin Calcium 10 Mg Tablet 10 Mg PO DAILY Novolog Flexpen (Insulin Aspart) 100 Unit/1 Ml Insuln.pen 8 Units SQ TIDAC Venlafaxine Hcl Er (Venlafaxine Hcl) 150 Mg Tab.er.24 150 Mg PO DAILY Trazodone Hcl 50 Mg Tablet 25 Mg PO QHS Meloxicam 7.5 Mg Tablet 7.5 Mg PO DAILY Lantus Solostar (Insulin Glargine,Hum.rec.anlog) 100 Unit/1 Ml Insuln.pen 35 Unit SQ DAILY I have reviewed the current psychotropics carefully including drug interactions. Risk benefit ratio favors no change other than as noted in my dictated progress note. Diagnosis: Problems: (1) Anxiety disorder (2) Major depressive disorder, recurrent episode GIRMA GRAF MD Sep 07, 2018 22:56
[2018-09-08 05:52] VITALS: BP 116/69
[2018-09-08] MEDS: MELOXICAM 7.5 MG TABLET PO SCH (07:48)
[2018-09-08] MEDS: ASPIRIN 81 MG TAB.CHEW PO SCH (07:48)
[2018-09-08] MEDS: DULoxetine HCL 60 MG CAPSULE.DR PO SCH (07:48)
[2018-09-08] MEDS: ARIPiprazole 2 MG TABLET PO SCH (07:48)
[2018-09-08] MEDS: POLYETHYLENE GLYCOL 3350 17 GM PACKET. PO SCH (07:48)
[2018-09-08] MEDS: FUROSEMIDE 20 MG TABLET PO SCH (07:48)
[2018-09-08] MEDS: INSULIN LISPRO 300 UNITS/3 ML INSULN.PEN. SQ SCH ×3 (07:51→16:30)
[2018-09-08] MEDS: INSULIN GLARGINE 300 UNITS/3 ML INSULN.PEN. SQ SCH (07:55)
[2018-09-08] MEDS: BENZONATATE 100 MG CAPSULE. PO SCH ×3 (09:44→19:07)
--- NOTE | 2018-09-08 13:38 | RAD ---
AP and Lateral Views of the Chest 09/08/2018 9:00 AM Indication: COUGH WITH CONGESTION Comparison: Chest radiograph September 03, 2018 Findings: There is no focal consolidation or infiltrate identified. The cardiomediastinal silhouette is within normal limits. Similar appearance of dual-lead pacemaking device from a left subclavian approach. Mediastinal contour is stable. Degenerative changes of the thoracic spine again noted. No acute osseous abnormalities are identified. Impression: No evidence of acute cardiopulmonary process or acute change from prior exam Electronically signed by: Wilber Gallego MD (09/08/2018 1:35 PM) [id number]
[2018-09-08 15:55] VITALS: BP 117/72
[2018-09-08] MEDS: traZODone 50 MG TABLET. PO SCH (19:07)
[2018-09-08] MEDS: ATORVASTATIN CALCIUM 10 MG TABLET. PO SCH (19:07)
--- NOTE | 2018-09-08 19:50 | PN ---
DATE: 09/07/2018 This is a late entry for 09/07/2018 covers elements not covered in my initial note. SUBJECTIVE: I met with the patient in the evening and staffed at a treatment team meeting with the entire team in the morning. The patient slept 7-3/4 hours previous night. She remains withdrawn, has some symptoms of upper respiratory infection, still depressed, but better than before. Denies active suicidal ideation. REVIEW OF SYSTEMS: No CV, , GI, eye system symptoms on review other than URI symptoms, which are improving. MENTAL STATUS EXAM: I met with her individually in her room in the evening. She is reasonably oriented. Speech has some latency, coherent. Abstraction fair, computation reasonable, language function intact, attention span short. Mood and affect is improved. LABORATORY DATA: Reviewed. IMPRESSION: Major depressive disorder in partial remission. Rest unchanged. PLAN: Continue psychotropics from initial note, Cymbalta 60 mg a day, Abilify 2 mg a day to augment the Cymbalta, trazodone 50 at bedtime, february repeat x 1 for insomnia. MAN Patrice GRAF MD DR: ROLAN/angle JOB#: [id number] / [id number]
--- NOTE | 2018-09-08 19:53 | PN ---
DATE: 09/06/2018 PSYCHIATRIC PROGRESS NOTE This late entry 09/06/2018 covers elements not covered in my initial note. SUBJECTIVE: Met with the patient in the evening. The patient slept 7-1/2 hours previous night. She remains somewhat withdrawn, but less depressed, less tearful, calmer, denies active suicidal ideation. REVIEW OF SYSTEMS: Positive for symptoms of upper respiratory infection. No CV, , GI, eye, ENT system symptoms on review other than above. MENTAL STATUS EXAM: Met with her in her room at some length. She is reasonably oriented. Speech has some latency, coherent. Abstraction fair, computation impaired, language function intact, attention span short. Mood and affect somewhat withdrawn, but improved. LABORATORY DATA: Reviewed. IMPRESSION: Major depressive disorder, recurrent, in partial remission. Rest unchanged. PLAN: No change from initial note. MAN Patrice GRAF MD DR: ROLAN/angle JOB#: [id number] / [id number]
--- NOTE | 2018-09-09 00:36 | PN ---
DATE: 09/08/2018 SUBJECTIVE: The patient was seen today, met with the staff, chart reviewed, also covering for Dr. Slaughter. Staff reports no major problems except she is not sleeping well. 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 OBSERVATIONS: VITAL SIGNS: Temperature 98.8, blood pressure 116/69, pulse 85, respiration 18, O2 sat 94%. GENERAL: Slept only about 5 hours last night. CURRENT MEDICATIONS: The patient's medications reviewed, currently on Abilify 2 mg daily, Cymbalta 60 mg daily, trazodone 50 mg at night. The patient is also on trazodone 25 mg at night. LABORATORY DATA: The patient is medically stable. No major change in her lab work. ASSESSMENT: Major depressive disorder, recurrent; mild cognitive disorder. PLANS: The patient is scheduled for discharge on 09/10/2018. She will be returning home. AMADEO WAYNE MD DR: GAYLE/angle JOB#: [id number] / [id number]
[2018-09-09 05:26] VITALS: BP 147/64
--- NOTE | 2018-09-09 06:23 | RAD ---
INDICATION: CONTINUOUS COUGH COMPARISON: September 08, 2018 FINDINGS: Single view of chest obtained. Calcific atherosclerosis. Pacemaker is again seen. No new airspace consolidation. Degenerative changes shoulders. IMPRESSION: 1. No new region of airspace consolidation. Electronically signed by: Mynor Alarcon MD (09/09/2018 6:20 AM) [id number]
[2018-09-09 06:41] LABS: BASO % 0 % (0-3); EOS # 0.1 x10^3/uL (0.0-0.7); EOS % 2 % (0-3); HEMATOCRIT 36.3 % (36.0-47.0); HEMOGLOBIN 12.2 g/dL (12.0-15.5); LYMPH # 1.1 x10^3/uL (1.0-4.8); LYMPH % 18 % (24-48); MEAN CORPUSCULAR HEMOGLOBIN 29 pg (25-35); MEAN CORPUSCULAR HGB CONC 34 g/dL (31-37); MEAN CORPUSCULAR VOLUME 87 fL (79-100); MONO # 0.5 x10^3/uL (0.0-1.1); MONO % 8 % (0-9); NEUT # 4.6 x10^3uL (1.8-7.7); NEUT % 72 % (31-73); PLATELET COUNT 136 x10^3/uL (140-400); RED BLOOD COUNT 4.16 x10^6/uL (3.50-5.40); RED CELL DISTRIBUTION WIDTH 14.1 % (11.5-14.5); WHITE BLOOD COUNT 6.4 x10^3/uL (4.0-11.0)
[2018-09-09 06:55] LABS: ALBUMIN 2.9 g/dL (3.4-5.0); ALBUMIN/GLOBULIN RATIO 0.8 (1.0-1.7); CALCIUM 8.8 mg/dL (8.5-10.1); CREATININE 1.2 mg/dL (0.6-1.0); GFR 43.3; POTASSIUM 3.6 mmol/L (3.5-5.1); TOTAL PROTEIN 6.6 g/dL (6.4-8.2)
[2018-09-09] MEDS: POLYETHYLENE GLYCOL 3350 17 GM PACKET. PO SCH (07:33)
[2018-09-09] MEDS: ARIPiprazole 2 MG TABLET PO SCH (07:33)
[2018-09-09] MEDS: MELOXICAM 7.5 MG TABLET PO SCH (07:33)
[2018-09-09] MEDS: ASPIRIN 81 MG TAB.CHEW PO SCH (07:33)
[2018-09-09] MEDS: DULoxetine HCL 60 MG CAPSULE.DR PO SCH (07:33)
[2018-09-09] MEDS: BENZONATATE 100 MG CAPSULE. PO SCH ×3 (07:34→19:12)
[2018-09-09] MEDS: FUROSEMIDE 20 MG TABLET PO SCH (07:34)
[2018-09-09] MEDS: INSULIN LISPRO 300 UNITS/3 ML INSULN.PEN. SQ SCH ×3 (07:35→16:30)
[2018-09-09] MEDS: INSULIN GLARGINE 300 UNITS/3 ML INSULN.PEN. SQ SCH (07:35)
[2018-09-09] MEDS ORDERED: ARIP2TAB35 PO (13:14)
[2018-09-09] MEDS ORDERED: BENZ1LOZ48 MM (13:15)
[2018-09-09] MEDS ORDERED: BENZ100C PO (13:15)
[2018-09-09] MEDS ORDERED: MAGN2400 PO (13:16)
[2018-09-09] MEDS ORDERED: MAG355OR12 PO (13:16)
[2018-09-09] MEDS ORDERED: DEXT15DR5 OU (13:18)
[2018-09-09] MEDS ORDERED: GUAI600T79 PO (13:19)
[2018-09-09] MEDS ORDERED: TRAZ-85 PO (13:20)
[2018-09-09 15:29] VITALS: BP 123/73
[2018-09-09] MEDS ORDERED: IPRATRPIUM/ALBUTEROL 0.5/2.5MG 3 ML NEBU. NEB SCH (16:00)
[2018-09-09] MEDS: IPRATRPIUM/ALBUTEROL 0.5/2.5MG 3 ML NEBU. NEB SCH ×2 (16:27→20:32)
--- NOTE | 2018-09-09 18:59 | PN ---
DATE: 09/09/2018 SUBJECTIVE: The patient was seen today, met with the staff, chart reviewed. The patient is still having difficulty with sleep. The patient still has periods of depression, has shown some improvement and also having mild cognitive problems. The patient's medications reviewed. She is currently on Abilify 2 mg daily, Cymbalta 60 mg daily, trazodone 50 mg at night and 25 mg at night. The patient is not having any side effects. PHYSICAL EXAMINATION: VITAL SIGNS: Temperature 98.6, blood pressure 147/64, pulse 82, respirations 24, O2 sat 98%. Slept only 3 hours last night. LABORATORY DATA: The patient's lab reviewed. ASSESSMENT: Major depressive disorder, recurrent; mild cognitive disorder. PLAN: Continue with the treatment. The patient is scheduled for discharge on 09/11/2018. She will be returning home. AMADEO WAYNE MD DR: GAYLE/angle JOB#: [id number] / [id number]
[2018-09-09] MEDS: traZODone 50 MG TABLET. PO SCH (19:12)
[2018-09-09] MEDS: ATORVASTATIN CALCIUM 10 MG TABLET. PO SCH (19:12)
[2018-09-10 05:20] VITALS: BP 158/68
[2018-09-10] MEDS: IPRATRPIUM/ALBUTEROL 0.5/2.5MG 3 ML NEBU. NEB SCH ×4 (05:38→19:42)
[2018-09-10] MEDS: ACETAMINOPHEN 325 MG TABLET PO PRN (06:12)
[2018-09-10] MEDS: ARIPiprazole 2 MG TABLET PO SCH (07:53)
[2018-09-10] MEDS: BENZONATATE 100 MG CAPSULE. PO SCH ×3 (07:53→20:30)
[2018-09-10] MEDS: POLYETHYLENE GLYCOL 3350 17 GM PACKET. PO SCH (07:53)
[2018-09-10] MEDS: ASPIRIN 81 MG TAB.CHEW PO SCH (07:53)
[2018-09-10] MEDS: FUROSEMIDE 20 MG TABLET PO SCH (07:53)
[2018-09-10] MEDS: MELOXICAM 7.5 MG TABLET PO SCH (07:53)
[2018-09-10] MEDS: INSULIN GLARGINE 300 UNITS/3 ML INSULN.PEN. SQ SCH (07:55)
[2018-09-10] MEDS: DULoxetine HCL 60 MG CAPSULE.DR PO SCH (08:06)
[2018-09-10] MEDS: INSULIN LISPRO 300 UNITS/3 ML INSULN.PEN. SQ SCH ×4 (08:34→20:28)
[2018-09-10 17:02] VITALS: BP 118/80
[2018-09-10] MEDS: ATORVASTATIN CALCIUM 10 MG TABLET. PO SCH (20:30)
[2018-09-10] MEDS: traZODone 50 MG TABLET. PO SCH (20:30)
--- NOTE | 2018-09-11 02:00 | PN ---
DATE: 09/11/2018 FINAL DIAGNOSES: AXIS I: 1. Major depressive disorder, recurrent, moderate. 2. Anxiety disorder, unspecified. 3. Impulse control disorder, unspecified. 4. Mild cognitive impairment. REASON FOR ADMISSION: This 77-year-old female was admitted to inpatient program at [facility] in [place] from [facility]. 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 The patient has been getting increasingly depressed, hopeless, worthless, overwhelmed while taking care of her of threatening suicide. HISTORY OF PRESENT ILLNESS: The patient apparently has been feeling depressed, feeling hopeless, helpless, worthless increasingly anxious, overwhelmed taking care of her . She is constantly talking about suicide. She was praying to be and at one point threatened to jump off the third story of the apartment complex to end her life. The patient has apparently failed outpatient treatment. The patient was also not eating and also started showing some mild cognitive deficits. HOSPITAL COURSE: The patient had a physical exam, routine lab work including CBC, chem profile, and urinalysis, which were all within normal range except for increased blood sugar range from 166 to 212. The patient's creatinine level was 1.2, BUN was 23. The patient's liver enzymes were normal. The patient's HDL was 64. The patient was involved in the program including individual therapy, group therapy, activity therapy. The patient was on albuterol inhaler. The patient was on insulin glargine 25 units daily, Abilify 2 mg daily, Cymbalta 60 mg daily, trazodone 50 mg at night, Lipitor 10 mg at night, meloxicam 7.5 mg daily, Lasix 20 mg daily, aspirin 81 mg daily. The patient is also on Humalog. The patient was also on trazodone 25 mg at bedtime p.r.n. The patient had a physical exam. Apparently, did not present with any major medical issues. ALLERGIES: THE PATIENT IS ALLERGIC TO MORPHINE, SULFA, AMOXICILLIN, CIPRO, CODEINE, ERYTHROMYCIN, MEPERIDINE, and TRAMADOL. The patient was compliant with the treatment most of the time, but she is constantly anxious, restless, pacing, having difficulty dealing with the current situation and also beginning to show mild cognitive impairment. AFTERCARE PLANS: The patient will be returning to living apartment, [place], it is an independent living and apparently there is an option that if her problems get worse, she could be moved to a higher level of care. AMADEO WAYNE MD DR: GAYLE/angle JOB#: [id number] / [id number]
[2018-09-11] MEDS ORDERED: IPRA3AMP29 NEB (03:21)
[2018-09-11] MEDS ORDERED: DULO60CA6 PO (03:26)
[2018-09-11] MEDS: IPRATRPIUM/ALBUTEROL 0.5/2.5MG 3 ML NEBU. NEB SCH ×2 (05:38→12:08)
[2018-09-11 06:24] VITALS: BP 95/56
[2018-09-11] MEDS: POLYETHYLENE GLYCOL 3350 17 GM PACKET. PO SCH (09:08)
[2018-09-11] MEDS: ARIPiprazole 2 MG TABLET PO SCH (09:09)
[2018-09-11] MEDS: MELOXICAM 7.5 MG TABLET PO SCH (09:09)
[2018-09-11] MEDS: ASPIRIN 81 MG TAB.CHEW PO SCH (09:09)
[2018-09-11] MEDS: BENZONATATE 100 MG CAPSULE. PO SCH (09:09)
[2018-09-11] MEDS: FUROSEMIDE 20 MG TABLET PO SCH (09:09)
[2018-09-11] MEDS: DULoxetine HCL 60 MG CAPSULE.DR PO SCH (09:09)
[2018-09-11] MEDS: INSULIN GLARGINE 300 UNITS/3 ML INSULN.PEN. SQ SCH (09:10)
[2018-09-11] MEDS: INSULIN LISPRO 300 UNITS/3 ML INSULN.PEN. SQ SCH (12:04)
== END 2018-09-11 13:30 | disposition home or self-care (01) | DRG 885 ==
LOC: GEROPSY 22:00
PROVIDERS: ADMIT Psychiatry & Neurology Psychiatry; ATTEND Psychiatry & Neurology Psychiatry
DX: F33.3 Major depressive disorder, recurrent, severe with psychotic symptoms (principal); E66.9 Obesity, unspecified; E11.22 Type 2 diabetes mellitus with diabetic chronic kidney disease; E11.43 Type 2 diabetes mellitus with diabetic autonomic (poly)neuropathy; D86.9 Sarcoidosis, unspecified; F41.9 Anxiety disorder, unspecified; F33.41 Major depressive disorder, recurrent, in partial remission; G31.84 Mild cognitive impairment of uncertain or unknown etiology; G47.33 Obstructive sleep apnea (adult) (pediatric); F09 Unspecified mental disorder due to known physiological condition; E78.5 Hyperlipidemia, unspecified; J45.909 Unspecified asthma, uncomplicated; K21.9 Gastro-esophageal reflux disease without esophagitis; K57.90 Diverticulosis of intestine, part unspecified, without perforation or abscess without bleeding; J06.9 Acute upper respiratory infection, unspecified; I48.91 Unspecified atrial fibrillation; G89.29 Other chronic pain; G62.9 Polyneuropathy, unspecified; N18.3 Chronic kidney disease, stage 3 (moderate); Z66 Do not resuscitate; Z79.82 Long term (current) use of aspirin; Z68.27 Body mass index [BMI] 27.0-27.9, adult; Z79.899 Other long term (current) drug therapy; Z79.4 Long term (current) use of insulin; Z95.0 Presence of cardiac pacemaker
CPT/HCPCS: 36415; 71045; 71046; 80053; 80061; 82306; 82607; 82947; 83036; 83540; 83550; 83735; 84436; 84443; 84480; 85025; 85027; 93005; 94640; J1815; J7620; 97110; 97116; 97530; 97535